=== PATIENT | male | born 1970 | race African-American/Black ===

== ENCOUNTER 2016-08-25 02:41 | Emergency (ER) | payer BC, OTHER ==
[~2016-08-25] VITALS: Ht 172.7 cm; Wt 88.5 kg
--- NOTE | ~2016-08-25 | EKG ---
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 : 1970 Requested By: Shaggy Fry Order Number: [id number] MD: Roque Perales Measurements Intervals [place] Rate: 99 P: 54 MN: 146 QRS: -60 QRSD: 135 T: 41 QT: 364 QTc: 468 Interpretive Statements Sinus rhythm RBBB and LAFB Compared to ECG 04/29/2012 16:19:04 Left anterior fascicular block now present Right bundle-branch block now present Electronically Signed On 08-25-2016 9:00:57 CDT by Roque Perales [email or web address] <ELECTRONICALLY SIGNED> By: Roque Perales MD, [facility] 08/25/16 0900 2 2 Roque Perales MD, [facility] /EPI
[~2016-08-25 02:41] MED LIST: ATRIPLA TABLET1 EACH PO; AUGMENTIN 875875 M1 PO; AVELOX 400 MG400 M1 PO; BACTRIM DS TAB1 EACH PO; CARVEDILOL12.5 MG PO; CLOPIDOGREL PO; COLACE100 MG PO; DOLOPHINE HCL5 MG PO; ENOXAPARIN40 MG/0.4 SUBQ; FLEXERIL PO; HIGH CHOLESTEROL MED; HUMULIN 70100 UNIT/2 SQ; HUMULIN 70100 UNIT/2 SUBQ; HYDROCODON-ACE1 EACH PO; IBUPROFEN 200200 M1 PO; IBUPROFEN 600600 M1 PO; IBUPROFEN 800800 M1 PO; IBUPROFEN 800800 MG PO; INSULIN PEN; LISINOPRIL10 MG PO; METHADONE HCL5 MG PO; MOBIC15 MG PO; NEURONTIN 300300 M1 PO; NICOTINE TRANSD21 M1 TRANSDERM; NORCO 5-325 TA1 EACH PO; NOVOLIN 70100 UNIT/1 SUBQ; NOVOLOG100 UNIT/1; OXYCONTIN CR 2020 MG PO; PERCOCET 10-321 EACH; TEGRETOL XR100 MG PO; UNKNOWN PAIN MED; VITAMINC500 PO; ZESTRIL10 MG PO; ZINC SULFATE 2220 M1 PO; ZOCOR5 MG
[2016-08-25 04:25] LABS: ABSOLUTE NEUTROPHILS 5.1 thou/uL (1.4-8.2); BASOPHILS 0.7 % (0.0-2.0); EOSINOPHILS 3.6 % (0.0-3.0); HEMATOCRIT 42.9 % (42.0-52.0); HEMOGLOBIN 14.8 gm/dL (14.0-18.0); LYMPHOCYTES 22.1 % (24.0-44.0); MCH 31.8 pg (26.0-34.0); MCHC 34.5 g/dL (28.0-37.0); MONOCYTES 7.2 % (1.0-8.0); PLATELET COUNT 273 thou/uL (150-400); POLYS 66.4 % (36.0-66.0); RBC 4.66 mil/uL (4.50-6.00); RDW 12.8 % (10.5-14.5); WBC 7.6 thou/uL (4.0-11.0)
[2016-08-25 04:30] LABS: MANUAL DIFF NO
[2016-08-25 04:33] LABS: CALCIUM 8.6 mg/dL (8.5-10.1); CREATININE 1.3 mg/dL (0.7-1.3); POTASSIUM 4.1 mmol/L (3.5-5.1)
[2016-08-25 04:39] LABS: ALBUMIN 2.7 g/dL (3.4-5.0); APTT 23.4 Seconds (24.5-32.8); PROTIME 9.6 Seconds (9.3-11.4); TOTAL BILIRUBIN 0.3 mg/dL (<0.1-1.0); TOTAL PROTEIN 7.5 g/dL (6.4-8.2)
[2016-08-25] MEDS ORDERED: NORCO 5-325 TA1 EACH PO (05:51)
[2016-08-25] MEDS ORDERED: NAPROSYN500 MG PO (05:51)
== END 2016-08-25 06:37 | disposition home or self-care (01) ==
LOC: ER 02:41
PROVIDERS: Emergency Medicine
DX: M79.621 Pain in right upper arm (principal); E11.9 Type 2 diabetes mellitus without complications; F17.210 Nicotine dependence, cigarettes, uncomplicated; F10.99 Alcohol use, unspecified with unspecified alcohol-induced disorder; Z21 Asymptomatic human immunodeficiency virus [HIV] infection status; Z79.4 Long term (current) use of insulin

== ENCOUNTER 2017-05-11 19:53 | Emergency (ER) | payer BC, OTHER ==
[~2017-05-11] VITALS: Ht 172.7 cm; Wt 81.7 kg
[~2017-05-11 19:53] MED LIST changes: +NAPROSYN500 MG PO
[2017-05-11 22:00] LABS: ABSOLUTE NEUTROPHILS 2.9 thou/uL (1.4-8.2); BASOPHILS 1.2 % (0.0-2.0); EOSINOPHILS 3.1 % (0.0-3.0); HEMATOCRIT 45.4 % (42.0-52.0); HEMOGLOBIN 15.6 gm/dL (14.0-18.0); LYMPHOCYTES 34.4 % (24.0-44.0); MCH 31.8 pg (26.0-34.0); MCHC 34.4 g/dL (28.0-37.0); MCV 92.4 fL (80.0-100.0); MONOCYTES 6.3 % (1.0-8.0); PLATELET COUNT 261 thou/uL (150-400); RBC 4.92 mil/uL (4.50-6.00); RDW 13.2 % (10.5-14.5); WBC 5.2 thou/uL (4.0-11.0)
[2017-05-11 22:07] LABS: CALCIUM 8.9 mg/dL (8.5-10.1); CREATININE 1.4 mg/dL (0.7-1.3); POTASSIUM 3.4 mmol/L (3.5-5.1)
[2017-05-11 22:10] LABS: URIC ACID* 3.9 mg/dL (2.6-7.2)
[2017-05-11] MEDS ORDERED: HUMULIN 70100 UNIT/2 SUBQ (22:33)
[2017-05-11] MEDS ORDERED: ULTRAM 50MG TAB50 MG PO (22:33)
[2017-05-11 22:40] VITALS: BP 140/94
== END 2017-05-11 22:41 | disposition home or self-care (01) ==
LOC: ER 19:53
PROVIDERS: Physician Assistant
DX: E11.40 Type 2 diabetes mellitus with diabetic neuropathy, unspecified (principal); F17.210 Nicotine dependence, cigarettes, uncomplicated

== ENCOUNTER 2017-08-17 14:35 | Inpatient (IN) | payer BC, OTHER ==
[~2017-08-17] VITALS: Ht 172.7 cm; Wt 86.5 kg
[~2017-08-17 14:35] MED LIST changes: +ULTRAM 50MG TAB50 MG PO
[2017-08-17 17:56] VITALS: BP 173/112
[2017-08-17 19:23] VITALS: BP 164/104
[2017-08-17 20:03] LABS: ABSOLUTE NEUTROPHILS 2.8 thou/uL (1.4-8.2); BASOPHILS 0.9 % (0.0-2.0); EOSINOPHILS 4.6 % (0.0-3.0); HEMATOCRIT 44.4 % (42.0-52.0); HEMOGLOBIN 15.5 gm/dL (14.0-18.0); LYMPHOCYTES 30.8 % (24.0-44.0); MCH 32.3 pg (26.0-34.0); MCHC 34.9 g/dL (28.0-37.0); MCV 92.6 fL (80.0-100.0); MONOCYTES 7.1 % (1.0-8.0); PLATELET COUNT 323 thou/uL (150-400); POLYS 56.6 % (36.0-66.0); RDW 13.2 % (10.5-14.5); WBC 4.9 thou/uL (4.0-11.0)
[2017-08-17 20:13] LABS: CALCIUM 8.9 mg/dL (8.5-10.1); CREATININE 1.1 mg/dL (0.7-1.3); POTASSIUM 3.1 mmol/L (3.5-5.1)
[2017-08-18] VITALS (7 sets, daily range): BP systolic 145–163; BP diastolic 11–109
[2017-08-18 06:14] LABS: GLYCOHEMOGLOBIN (HGB A1C) 10.1 % (4.8-5.6)
[2017-08-19 04:22] VITALS: BP 147/83
[2017-08-19 06:25] LABS: ABSOLUTE NEUTROPHILS 3.2 thou/uL (1.4-8.2); BASOPHILS 0.7 % (0.0-2.0); EOSINOPHILS 2.3 % (0.0-3.0); HEMATOCRIT 43.2 % (42.0-52.0); HEMOGLOBIN 14.8 gm/dL (14.0-18.0); LYMPHOCYTES 22.1 % (24.0-44.0); MCHC 34.2 g/dL (28.0-37.0); MCV 93.5 fL (80.0-100.0); MONOCYTES 7.8 % (1.0-8.0); PLATELET COUNT 299 thou/uL (150-400); POLYS 67.1 % (36.0-66.0); RBC 4.62 mil/uL (4.50-6.00); RDW 13.4 % (10.5-14.5); WBC 4.8 thou/uL (4.0-11.0)
[2017-08-19 06:34] LABS: CALCIUM 8.8 mg/dL (8.5-10.1); POTASSIUM 3.6 mmol/L (3.5-5.1)
[2017-08-19 06:38] LABS: CHOLESTEROL 215 mg/dL (<200); HDL CHOLESTEROL 50 mg/dL (>40); LDL CHOLESTEROL 146 mg/dL (<100); TC:HDL 4.3 Ratio (Not establshd); TRIGLYCERIDE 98 mg/dL (<150); VLDL 20 mg/dL (<40)
[2017-08-19 07:48] VITALS: BP 152/89
[2017-08-19 16:53] VITALS: BP 156/95
[2017-08-19 20:00] VITALS: BP 153/99
[2017-08-20 04:00] VITALS: BP 144/83
[2017-08-20 08:00] VITALS: BP 160/113
[2017-08-20] MEDS ORDERED: ATORVASTATIN CA40 MG PO (13:24)
[2017-08-20] MEDS ORDERED: COZAAR 25 MG TA25 M1 PO (13:24)
[2017-08-20] MEDS ORDERED: ATRIPLA TABLET1 EACH PO (13:24)
[2017-08-20] MEDS ORDERED: CLOPIDOGREL75 MG PO (13:24)
[2017-08-20] MEDS ORDERED: TRI-BUFFERED A325 M1 PO (13:24)
[2017-08-20] MEDS ORDERED: SYNTHROID50 MCG PO (13:24)
[2017-08-20] MEDS ORDERED: ACETAMINOPHEN325 M1 PO (13:24)
[2017-08-20] MEDS ORDERED: AMLODIPINE BESYL5 M1 PO (13:24)
[2017-08-20] MEDS ORDERED: HUMULIN 70100 UNIT/3 SUBQ ×2 (13:24)
[2017-08-20] MEDS ORDERED: SENNA8.6 MG PO (13:33)
[2017-08-20] MEDS ORDERED: AMOX TR-K CLV1 EACH PO (13:33)
[2017-08-20] MEDS ORDERED: COLACE100 MG PO (13:33)
[2017-08-20] MEDS ORDERED: OXYCODONE HCL 55 MG PO (13:45)
[2017-08-20 14:11] VITALS: BP 160/113
== END 2017-08-20 14:40 | disposition home or self-care (01) | DRG 300 ==
LOC: 4W 14:35 → ENTRNSPT 08-20 14:28 → EDTRNSPTSTS 08-20 14:32 → 4W 08-20 14:40
PROVIDERS: Family Medicine; Hospitalist; Nurse Practitioner Gerontology
DX: E11.52 Type 2 diabetes mellitus with diabetic peripheral angiopathy with gangrene (principal); E11.40 Type 2 diabetes mellitus with diabetic neuropathy, unspecified; F17.210 Nicotine dependence, cigarettes, uncomplicated; Z21 Asymptomatic human immunodeficiency virus [HIV] infection status; E03.9 Hypothyroidism, unspecified; I10 Essential (primary) hypertension; E78.5 Hyperlipidemia, unspecified; E11.65 Type 2 diabetes mellitus with hyperglycemia; K59.00 Constipation, unspecified; L03.032 Cellulitis of left toe; Z79.899 Other long term (current) drug therapy; Z71.6 Tobacco abuse counseling; Z72.89 Other problems related to lifestyle; Z71.41 Alcohol abuse counseling and surveillance of alcoholic; Z91.14 Patient's other noncompliance with medication regimen
CPT/HCPCS: 10047

== ENCOUNTER 2018-06-28 09:08 | Inpatient (IN) | payer BC, OTHER ==
[2018-06-28] VITALS (28 sets, daily range): BP systolic 91–129; BP diastolic 58–92
[~2018-06-28] VITALS: Ht 172.7 cm; Wt 92.6 kg
[~2018-06-28 09:08] MED LIST changes: +ACETAMINOPHEN325 M1 PO; +AMLODIPINE BESYL5 M1 PO; +AMOX TR-K CLV1 EACH PO; +ATORVASTATIN CA40 MG PO; +CLOPIDOGREL75 MG PO; +COZAAR 25 MG TA25 M1 PO; +HUMULIN 70100 UNIT/3 SUBQ; +OXYCODONE HCL 55 MG PO; +SENNA8.6 MG PO; +SYNTHROID50 MCG PO; +TRI-BUFFERED A325 M1 PO
[2018-06-28 09:34] LABS: EOSINOPHILS 1.2 % (0.0-3.0); HEMATOCRIT 51.8 % (42.0-52.0); HEMOGLOBIN 17.7 gm/dL (14.0-18.0); LYMPHOCYTES 35.1 % (24.0-44.0); MCH 33.1 pg (26.0-34.0); MCHC 34.2 g/dL (28.0-37.0); MCV 96.7 fL (80.0-100.0); MONOCYTES 9.3 % (1.0-8.0); PLATELET COUNT 411 thou/uL (150-400); POLYS 53.4 % (36.0-66.0); RBC 5.35 mil/uL (4.50-6.00); RDW 13.4 % (10.5-14.5); WBC 7.5 thou/uL (4.0-11.0)
[2018-06-28 09:40] LABS: ANION GAP 13 mmol/L (7-16); BUN 10 mg/dL (7-18); CALCIUM 9.5 mg/dL (8.5-10.1); CHLORIDE 102 mmol/L (98-107); CO2 27 mmol/L (21-32); CREATININE 1.1 mg/dL (0.7-1.3); GLUCOSE 136 mg/dL (74-106); POTASSIUM 3.2 mmol/L (3.5-5.1); SODIUM 142 mmol/L (136-145)
[2018-06-28 09:49] LABS: ALBUMIN 3.2 g/dL (3.4-5.0); DIRECT BILIRUBIN < 0.1 mg/dL (<0.1-0.3); SGOT 53 U/L (15-37); SGPT 25 U/L (30-65); TOTAL BILIRUBIN 0.3 mg/dL (<0.1-1.0); TOTAL PROTEIN 8.2 g/dL (6.4-8.2)
[2018-06-28 09:52] LABS: APTT 24.5 Seconds (24.5-32.8); PROTIME 9.9 Seconds (9.3-11.4)
[2018-06-28 09:53] LABS: TROPONIN-I 5.88 ng/mL (<0.06)
[2018-06-28 14:15] LABS: CALCIUM 8.7 mg/dL (8.5-10.1); MAGNESIUM 1.5 mg/dL (1.8-2.4); POTASSIUM 3.7 mmol/L (3.5-5.1)
--- NOTE | 2018-06-28 16:57 | EKG ---
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 : 1970 Requested By: Ember Juarez Order Number: [id number] MD: Roque Perales Measurements Intervals [place] Rate: 108 P: 58 DC: 147 QRS: -98 QRSD: 136 T: -15 QT: 316 QTc: 424 Interpretive Statements Sinus tachycardia Right bundle branch block Anteroseptal infarct, acute Compared to ECG 08/25/2016 03:13:46 Myocardial infarct finding now present Electronically Signed On 06-28-2018 16:57:18 CDT by Roque Perales [email or web address] ��������������������������������������������� <ELECTRONICALLY SIGNED> ���������������������������������������� By: Roque Perales MD, [facility] ��������������������������������������������� 06/28/18 2715 2 Roque Perales MD, [facility] /EPI
--- NOTE | 2018-06-28 17:01 | EKG ---
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 : 1970 Requested By: Will Collins Order Number: [id number] MD: Roque Perales Measurements Intervals [place] Rate: 108 P: 59 [place]: 146 QRS: -123 QRSD: 130 T: 68 QT: 373 QTc: 500 Interpretive Statements Sinus tachycardia Ventricular premature complex Right bundle branch block Anterior infarct, acute (LAD) Compared to ECG 08/25/2016 03:13:46 Ventricular premature complex(es) now present ST segment elevation less prominent Electronically Signed On 06-28-2018 17:01:06 CDT by Roque Perales [email or web address] ��������������������������������������������� <ELECTRONICALLY SIGNED> ���������������������������������������� By: Roque Perales MD, [facility] ��������������������������������������������� 06/28/18 1701 1443 1443 Roque Perales MD, [facility] /EPI
--- NOTE | 2018-06-28 17:24 | CATHLAB ---
[facility] [address] [place] [address] INVASIVE PROCEDURE REPORT Name: ZARI GASPAR Room #: 246-P [facility] IN ..#: [id number] ������������� Admission: 06/28/18 ������������� Attend Phys: Jah Guzman MD Discharge: ��� ������������� ��� Date of : 74 Date of Service: 06/28/18 1724 �� Report #: [id number] �������� ��������������������������������������������[id number] THIS REPORT FOR: //name// APPROVED REPORT Study performed: 06/28/2018 09:53:11 Patient Details Patient Status: ED Room #: The patient is a 47 year-old male Event Personnel Will Collins Stock Digger, Bharath Hopper RN, Lizbeth Owen RT(R)() Joe Whittington David Monitor Procedures Performed Left Heart Cath w/or w/o Coronaries [id number] [facility] IMANI Revasc AMI Total/Sub Single LAD C9606 AMIREVSING Indication STEMI (>0 to less than or equal to 6 hours), Dyspnea, Chest pain Risk Factors Hypercholesterolemia, Hypertension, Diabetes Tobacco History () Procedure Narrative The Right Groin^ was infiltrated with 1% Lidocaine subcutaneous anesthesia. A PINNACLE 6FR Sheath #[id number] sheath was inserted into the RFA^. Coronary angiography was performed using coronary diagnostic catheters. The right coronary system was accessed and visualized with a JR4 catheter. The left coronary system was accessed and visualized with a JL4 catheter. The left ventricle was accessed and visualized with a PIGTAIL catheter. Left ventricular/Aortic Valve gradient assessed via catheter pullback. Left ventriculogram was performed in 30 degree projection. Closure device was deployed with a 6 Fr MYNXGRIP 6/7F #[id number]. The patient tolerated the procedure well and there were no complications associated with the procedure. There was no hematoma. Intraoperative Conscious Sedation Sedation start time: 9.43 Case end Time: 10.57 Fentanyl [facility] [email or web address] [place] [address] INVASIVE PROCEDURE REPORT Name: ZARI GASPAR Room #: 246-P [facility] IN [facility].#: [id number] ������������� Admission: 06/28/18 ������������� Attend Phys: Jah Guzman MD Discharge: ��� ������������� ��� Date of : 74 Date of Service: 06/28/18 1724 �� Report #: [id number] �������� ��������������������������������������������[id number] Fluoro Time: 15.8 minutes Dose: DAP 73521 cGycm2 3509 mGy Coronary Angiography The patient's coronary anatomy is co- dominant. Diagnostic Cath Left Main This is a large caliber vessel, with no flow-limiting lesions. LAD There is a total occlusion in the proximal segment of the LAD. Circumflex This is a codominant vessel, with no flow-limiting lesions. OM1 This is a moderate size caliber vessel with a high takeoff from the left circumflex artery. This vessel is patent with no flow-limiting lesions. It divides into several branches as it travels down the anterolateral wall. OM2 This is a moderate size caliber vessel with a moderate stenosis at the proximal segment, 40%. Right Coronary There is a moderate stenosis in the proximal segment, 40%. R PDA This is a patent vessel, with no flow-limiting lesions. Left Ventriculography The left ventricle is mildly dilated in size with decreased contractility. The left ventricular ejection fraction is estimated to be 25-30%. There is hypokinesis of the mid to apical anterior and distal inferior wall. Hemodynamics The aortic pressure is 102/76 mmHg with a mean of 89 mmHg. The left ventricular pressure is 107/27 mmHg with a mean of mmHg. The left ventricular end diastolic pressure is 45 mmHg. There was no gradient across the aortic valve upon pullback. Pullback from the left ventricle to the aorta revealed no gradient across the aortic valve. PCI Technique Lesion Percutaneous coronary intervention was performed on the proximal left anterior descending artery segment. The lesion stenosis prior to intervention was 100% with KELL 0 flow. A VISTA 6FR JL4 #[id number] Guide Catheter was used to engage the ostium. A Luge Wire .014 x 182CM #[id number] Interventional Guidewire was used to cross the lesion. [facility] [address] [place] [address] INVASIVE PROCEDURE REPORT Name: CHASITYZARI Room #: 246-P [facility] IN M.R.#: [id number] ������������� Admission: 06/28/18 ������������� Attend Phys: Jah Guzman MD Discharge: ��� ������������� ��� Date of : 74 Date of Service: 06/28/18 1724 �� Report #: [id number] �������� ��������������������������������������������[id number] BALLOON DILATION A Balloon catheter Euphora RX 2.5 x 12 #[id number] was inserted and inflated up to 8.00atm for 16seconds. Additional Inflation: 20.00atm for 16seconds. Additional Inflation: 18.00atm for 20seconds. STENT DEPLOYMENT A drug-eluting stent XIENCE RYNE RX 3.25 X 23 #[id number] was inserted and inflated up to 20.00atm for 16seconds. POST STENT DEPLOYMENT BALLOON DILATION A Balloon catheter TREK NC RX 3.5 X 15 #[id number] was inserted and inflated up to 18.00atm for 20seconds. Additional Inflation: 18.00atm for 7seconds. Additional Inflation: 18.00atm for 14seconds. COMMENTS After the proximal occlusion was wired, there was a no flow in the distal LAD segment, probably from embolization. After the proximal occlusion was stented, this provided adequate blood flow to the proximal and mid segments of the LAD and its branches. There was still a total occlusion within the distal LAD segment. A wire was introduced into this region and angioplasty with a 2.0 mm balloon was performed. Repeat injections did not reveal any improvement. PCI Technique Lesion 2 Percutaneous Coronary Intervention was performed on the distal left anterior descending artery segment. A VISTA 6FR JL4 #[id number] Guide Catheter was used to engage the ostium. A Luge Wire .014 x 182CM #[id number] Interventional Guidewire was used to cross the lesion. Balloon Dilation A Balloon catheter Euphora RX 2.0 x12 #[id number] was inserted and inflated up to 8.00atm for 12seconds. Additional Inflation: 8.00atm for 8seconds. Additional Inflation: 10.00atm for 19seconds. Conclusion 1. Successful insertion of a drug-eluting stent into the total occlusion in the proximal LAD. Total occlusion of distal LAD, possibly from embolization. 2. Codominant left circumflex system. 3. Moderate disease in OM 2 and RCA. 4. Severe LV dysfunction. [facility] [address] [place] [address] INVASIVE PROCEDURE REPORT Name: ZARI GASPAR Room #: 246-P [facility] IN M.R.#: [id number] ������������� Admission: 06/28/18 ������������� Attend Phys: Jah Guzman MD Discharge: ��� ������������� ��� Date of : 74 Date of Service: 06/28/181723 �� Report #: [id number] �������� ��������������������������������������������[id number] 5. Recommend dual antiplatelet therapy and aggressive risk factor management, including tobacco cessation. ��������������������������������������������� <ELECTRONICALLY SIGNED> ���������������������������������������� By: Will Collins MD ��������������������������������������������� 06/28/181723 23 23 Will Collins MD /INF
--- NOTE | 2018-06-28 18:18 | NUR ---
ASSUMED CARE OF PT FROM BLOOD COORDINATOR AT 1230. PT. IS DROWSY, BUT ORIENTED X4. RIGHT GROIN SITE IS INTACT WITH NO HEMATOMA FORMATION. BEDREST MAINTAINED. PT. TOLERATING HEART HEALTHY DIET. VITAL SIGNS AND ASSESSMENTS CHARTED. MAGNESIUM GIVEN PER PHYSICIAN ORDER. POC IS TO GRADUALLY INCREASE MOVEMENT. WILL CONTINUE TO MONITOR
[2018-06-29] VITALS (12 sets, daily range): BP systolic 86–126; BP diastolic 36–86
[2018-06-29 05:59] LABS: HEMATOCRIT 47.4 % (42.0-52.0); HEMOGLOBIN 15.9 gm/dL (14.0-18.0); MCH 32.7 pg (26.0-34.0); MCHC 33.6 g/dL (28.0-37.0); MCV 97.4 fL (80.0-100.0); RBC 4.87 mil/uL (4.50-6.00); RDW 13.3 % (10.5-14.5); WBC 9.1 thou/uL (4.0-11.0)
[2018-06-29 06:19] LABS: ALBUMIN 2.5 g/dL (3.4-5.0); CALCIUM 8.7 mg/dL (8.5-10.1); POTASSIUM 3.9 mmol/L (3.5-5.1); TOTAL BILIRUBIN 0.4 mg/dL (<0.1-1.0); TOTAL PROTEIN 6.2 g/dL (6.4-8.2)
--- NOTE | 2018-06-29 06:22 | NUR ---
Pt slept well through the night with stable VS and no c/o chest pain. PRN tramadols given for c/o right groin being "sore" with desired effect achieved. Voiding per urinal without difficulty. Am lab results pending, continue with POC.
[2018-06-29 06:52] LABS: TROPONIN-I 107.73 ng/mL (<0.06)
--- NOTE | 2018-06-29 08:54 | EKG ---
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 : 1970 Requested By: Will Collins Order Number: [id number] MD: Isaac Napoles Measurements Intervals [place] Rate: 113 P: 45 [place]: 151 QRS: -122 QRSD: 129 T: 76 QT: 346 QTc: 475 Interpretive Statements Sinus tachycardia Ventricular premature complex Right bundle branch block ST changes improved Compared to ECG 06/28/2018 14:43:52 Electronically Signed On 06-29-2018 8:54:16 CDT by Isaac Napoles [email or web address] ��������������������������������������������� <ELECTRONICALLY SIGNED> ���������������������������������������� By: Isaac Napoles MD ��������������������������������������������� 06/29/18 0854 0752 0752 Isaac Napoles MD /LINO
--- NOTE | 2018-06-29 10:47 | 2DMMODE ---
[facility] [address] [place] [address] 2 D/M-MODE ECHOCARDIOGRAM Name: ZARI GASPAR Room #: 246-P ADM IN M.R.#: [id number] ������������� Admission: 06/28/18 ������������� Attend Phys: Jah Guzman MD Discharge: ��� ������������� ��� Date of : 74 Date of Service: 06/29/18 1047 �� Report #: [id number] �������� ��������������������������������������������[id number] THIS REPORT FOR: //name// APPROVED REPORT Study performed: 06/29/2018 08:28:18 EXAM: Comprehensive 2D, Doppler, and color-flow Echocardiogram Patient Location: ICU Room #: 246 Status: routine BSA: 2.04 HR: 117 bpm BP: 111/77 mmHg Rhythm: Tachycardia Other Information Study Quality: Good Indications Diabetes CAD Cardiomyopathy Chest Pain Hypertension/HDD Echo Enhancing Agent Indication: Image Apical thrombus Agent(s) / Amount(s) Used: Optison 4 cc 2D Dimensions RVDd: 32.64 mm IVSd: 9.03 (7-11mm) LVOT Diam: 22.56 (18-24mm) LVDd: 60.58 mm PWd: 10.01 (7-11mm) Ascending Ao: 34.26 (22-36mm) LVDs: 55.49 (25-40mm) Aortic Root: 28.19 mm IVC: 16.00 mm Volumes Left Atrial Volume (Systole) Single Plane 4CH: 38.34 mL Single Plane 2CH: 61.24 mL LA ESV Index: 26.00 mL/m2 Aortic Valve AoV Peak Yoan.: 0.92 m/s [facility] [address] [place] [address] 2 D/M-MODE ECHOCARDIOGRAM Name: CHASITYZARI Room #: 246-P [facility]#: [id number] ������������� Admission: 06/28/18 ������������� Attend Phys: Jah Guzman MD Discharge: ��� ������������� ��� Date of : 74 Date of Service: 06/29/18 1047 �� Report #: [id number] �������� ��������������������������������������������[id number] AO Peak Gr.: 3.38 mmHg LVOT Max P.63 mmHg LVOT Max V: 0.81 m/s CRISTIAN Vmax: 3.52 cm2 Mitral Valve E/A Ratio: 4.2 MV Decel. Time: 126.04 ms MV E Max Yoan.: 0.92 m/s MV A Yoan.: 0.22 m/s MV PHT: 36.55 ms IVRT: 55.36 ms Pulmonary Valve PV Peak Yoan.: 0.76 m/s PV Peak Gr.: 2.34 mmHg Tricuspid Valve TR Peak Yoan.: 4.01 m/s TR Peak Gr.: 64.38 mmHg PA Pressure: 69.00 mmHg Left Ventricle Left ventricle is dilated. There is global severe hypokinesis of the left ventricle. There is normal left ventricular wall thickness. Left ventricular ejection fraction is severely decreased. Septal, anterolateral, and apical akinesis Large apical thrombus LVEF 25%. This study is not technically sufficient to allow evaluation of the LV diastolic function. Right Ventricle The right ventricle is normal size. The right ventricular systolic function is normal. Atria The left atrium size is normal. The right atrium size is normal. Aortic Valve The aortic valve is normal in structure. No aortic regurgitation is present. There is no aortic valvular stenosis. Mitral Valve The mitral valve is normal in structure. Mild mitral regurgitation. No evidence of mitral valve stenosis. Tricuspid Valve The tricuspid valve is normal in structure. There is mild tricuspid [facility] [address] [place] [address] 2 D/M-MODE ECHOCARDIOGRAM Name: ZARI GASPAR Room #: 246-P [facility] IN M.R.#: [id number] ������������� Admission: 06/28/18 ������������� Attend Phys: Jah Guzman MD Discharge: ��� ������������� ��� Date of : 74 Date of Service: 06/29/18 1047 �� Report #: [id number] �������� ��������������������������������������������[id number] regurgitation. Estimated PAP 65-70 mmHg There is moderate-severe pulmonary hypertension. Pulmonic Valve The pulmonary valve is normal in structure. Trace pulmonic regurgitation. Great Vessels The aortic root is normal in size. IVC is normal in size and collapses >50% with inspiration. Pericardium There is no pericardial effusion. Critical Notification Critical Value: Yes Physician Notified Date: 06/29/2018 <Conclusion> Left ventricular ejection fraction is severely decreased. Septal, anterolateral, and apical akinesis Large apical thrombus LVEF 25%. The aortic valve is normal in structure. No aortic regurgitation or stenosis The mitral valve is normal in structure. Mild mitral regurgitation. There is mild tricuspid regurgitation. Estimated pulmonar artery pressure of 65-70 mmHg There is no pericardial effusion. ��������������������������������������������� <ELECTRONICALLY SIGNED> ���������������������������������������� By: Roque Perales MD, FACC ��������������������������������������������� 06/29/18 1047 1047 1047 Roque Perales MD, FACC /INF
[2018-06-29 11:31] LABS: PROTIME 10.4 Seconds (9.3-11.4)
--- NOTE | 2018-06-29 13:14 | NUR ---
Assumed care of patient at 0700. Patient resting comfortably in bed. Denies chest pain, shortness of breath, or nausea at this time. Does c/o headache in the morning but resolved after eating breakfast. Right groin site remains soft, no drainage or hematoma noted. Patient up ad eric, steady gait. Echo done at bedside this morning. Ok'd to transfer to CCU. Continue to monitor.
--- NOTE | 2018-06-29 15:32 | NUR ---
PT TRANSFERED FROM THE ICU. ORINETED TO ROOM AND BEDSPACE - ASSESSMENT CHARTED - NO CO'S OF PAIN OR NAUSEA. UP AD TRES IN ROOM. GROIN SITE STABLE. NO CO'S AT THE PRESENT TIME. WILL CONT TO MONITOR.
--- NOTE | 2018-06-29 17:29 | NUR ---
Chart reviewed and case discussed with the care team. Bedside visit done with pt and his this afternoon to assess for dc planning needs. 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 He has health ins in place for f/u care and meds. He denies any dc concerns at this time. Pt transfered out of ICU today. Possible dc home tomorrow. Good family support. No cm interventions indicated at this time. Will remain avialable should needs arise.
[2018-06-30 04:21] LABS: PROTIME 10.4 Seconds (9.3-11.4)
[2018-06-30 04:22] VITALS: BP 120/79
[2018-06-30 04:32] LABS: CALCIUM 8.6 mg/dL (8.5-10.1); CREATININE 1.1 mg/dL (0.7-1.3); POTASSIUM 3.2 mmol/L (3.5-5.1)
[2018-06-30 04:55] LABS: TROPONIN-I 59.16 ng/mL (<0.06)
--- NOTE | 2018-06-30 07:29 | NUR ---
ASSESSMENTS CHARTED. PATIENT C/O NEUROPATHY IN LEFT FOOT 09/05 RECEIVED TRAMADOL AND TYLENOL CHARTED. CHANGED TO AD TRES STATUS. POTASSIUM WAS LOW THIS MORNING RECEIVED ONETIME DOSE. PLAN OF CARE IS TO GO HOME TODAY.
[2018-06-30 08:57] VITALS: BP 112/75
[2018-06-30 12:36] VITALS: BP 111/80
[2018-06-30 16:00] VITALS: BP 78/60
--- NOTE | 2018-06-30 16:40 | NUR ---
ASSESSMENT CHARTED - PORHSA DIET AND FLUIDS. NO CO'S OF NAUSEA. PT WITH CO'S OF DIABETIC NEUROPATHY PAIN IN HIS L FOOT - STATES THIS IS CHRONIC FROM TIME TO TIME ESPECIALLY WHEN HE IS NOT ACTIVE. ACCUCHECKS CHARTED COVERED PER MAY. UP AD TRES IN ROOM - PT REMAINS TACHYCARDIC - NEW MED STARTED TODAY AND COREG INCREASED. NO CO'S AT THE PRESENT TIME. APPEARS TO BE RESTING COMFORTABLY.
[2018-06-30 19:51] VITALS: BP 108/83
[2018-07-01 04:28] VITALS: BP 122/90
[2018-07-01 05:16] LABS: PROTIME 10.3 Seconds (9.3-11.4)
[2018-07-01 05:29] LABS: CALCIUM 8.6 mg/dL (8.5-10.1); CREATININE 1.1 mg/dL (0.7-1.3); POTASSIUM 3.2 mmol/L (3.5-5.1)
[2018-07-01 05:50] LABS: TROPONIN-I 44.45 ng/mL (<0.06)
--- NOTE | 2018-07-01 06:17 | NUR ---
ASSUMED PT CARE AT 1900 WITH BEDSIDE REPORT TAKEN, PT IS ALERT AND ORIENTED WITH NO SIGN OF DISTRESS NOTED. PT IS STABLE DENIES ANY NEEDS AT THIS TIME. SCHEDULED MEDS ADMINISTERED TO PT. PT TOLERATED PO INTAKE, NO FURTHER NEEDS AT THIS TIME.
[2018-07-01 09:16] VITALS: BP 118/86
[2018-07-01 13:08] VITALS: BP 127/91
[2018-07-01 15:36] LABS: MAGNESIUM 1.7 mg/dL (1.8-2.4); POTASSIUM 3.9 mmol/L (3.5-5.1)
[2018-07-01 16:00] VITALS: BP 125/86
--- NOTE | 2018-07-01 16:45 | NUR ---
ASSESSMENT CHARTED - MEDS PER MAY - GIVE K+ 40 MEQ FOR K+ OF 3.2. LAB DRAWN UP TO 3.9 - MAG 1.7 REPLACED AND THEN LAB IN THE AM. PORSHA DIET AND FLUIDS. NO CO'S OF NAUSEA . STARTED ON LYRICA FOR CO'S OF NEUROPATHY PAIN IN L FOOT WITH GOOD EFFECT. UP AD TRES IN ROOM. PT HEART RATE REMAINS IN THE 110'S. NO CO'S AT THE PRESENT TIME.
[2018-07-01 20:57] VITALS: BP 111/78
[2018-07-02 04:56] LABS: PROTIME 10.7 Seconds (9.3-11.4)
[2018-07-02 05:05] LABS: CALCIUM 8.5 mg/dL (8.5-10.1); CREATININE 1.2 mg/dL (0.7-1.3); MAGNESIUM 1.8 mg/dL (1.8-2.4); POTASSIUM 3.7 mmol/L (3.5-5.1)
[2018-07-02 05:16] LABS: TROPONIN-I 30.4 ng/mL (<0.06)
[2018-07-02 05:23] VITALS: BP 115/77
--- NOTE | 2018-07-02 05:33 | NUR ---
ASSUMED PT CARE AT 1900. VSS. PT A&0X4. ASSESMENTS CHARTED. PT COMPLAINED OF FOOT PAIN, STATED THAT THE NEW COURSE OF LYRICA STARTED HAS BEEN REALLY EFFECTIVE IN PAIN MANAGEMENT. PT REMAINS TACHY AT REST IN THE 110s AND 120s WITH ACTIVITY' REPORTS NO SYSTOMS, SAYS HE FEELS FINE. HE TOOK A COUPLE LAPS AROUND THE UNIT. HE IS STABLE. NO COMPLAINTS OF DISRESS, BLOOD SUGAR BEING MANAGED PER SSI. PT STATED HE IS BORED AND TIRED OF THE HOSPITAL AND WOULD LIKE TO GO HOME SOON. WILL CONTINUE TO [facility] PER POC.
[2018-07-02 07:40] VITALS: BP 113/75
[2018-07-02 11:40] VITALS: BP 120/81
--- NOTE | 2018-07-02 15:51 | NUR ---
ASSUMED CARE OF PT AT 0700. ASSESSMENT CHARTED. A&O, X4. C/O LEFT TOE PAIN AND TINGLING, MEDS GIVEN ORDERED. SINUS TACHYCARDIA, 110'S. ROOM AIR. DENIES SOA OR CHEST PAIN. NO EDEMA. SKIN INTACT. AT BEDSIDE THROUGHOUT DAY. PT IN STABLE CONDITION. WILL CONTINUE TO MONITOR UNTIL EOS.
[2018-07-02 16:58] VITALS: BP 126/88
[2018-07-02 19:28] VITALS: BP 125/87
--- NOTE | 2018-07-03 00:41 | NUR ---
ASSUMED PT CARE AT 1900. VSS EXCEPT HR WHICH IS STILL TACHY IN THE 110S, PT A&0X4. AD TRES, STATED THAT WHEN LYRICA IS GIVEN WITH TORADOL, HIS PAIN IS USUALLY COMPLETELY RELIEVED. PT VANDA TRANSFERED TO ANOTHER NUSE AT 0030
[2018-07-03 04:09] VITALS: BP 123/81
--- NOTE | 2018-07-03 05:45 | NUR ---
ASSUMED PT CARE AT 2300 WITH NO SIGN OF DISTRESS NOTED IN PT. PT IS SLEEPING, REPORT TAKEN. NO SIGN OF DISTRESS NOTED. DENIES ANY NEEDS AT THIS TIME.
[2018-07-03 08:40] VITALS: BP 127/90
[2018-07-03 08:49] LABS: INR 1.1; PROTIME 11.2 Seconds (9.3-11.4)
[2018-07-03 11:16] LABS: HEMATOCRIT 39.9 % (42.0-52.0); HEMOGLOBIN 13.6 gm/dL (14.0-18.0); MCH 33.1 pg (26.0-34.0); MCHC 34.1 g/dL (28.0-37.0); MCV 97.1 fL (80.0-100.0); RBC 4.11 mil/uL (4.50-6.00); RDW 12.6 % (10.5-14.5); WBC 5.9 thou/uL (4.0-11.0)
[2018-07-03 11:24] LABS: CALCIUM 8.5 mg/dL (8.5-10.1); CREATININE 1.2 mg/dL (0.7-1.3); MAGNESIUM 1.6 mg/dL (1.8-2.4); POTASSIUM 4.3 mmol/L (3.5-5.1)
[2018-07-03 12:35] VITALS: BP 123/90
--- NOTE | 2018-07-03 13:53 | EKG ---
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1970 Requested By: Isaac Napoles Order Number: [id number] MD: Roque Perales Measurements Intervals [place] Rate: 106 P: 64 LA: 160 QRS: -110 QRSD: 132 T: 88 QT: 360 QTc: 479 Interpretive Statements Sinus tachycardia Right bundle branch block Anteroseptal infarct, age indeterminate Compared to ECG 06/29/2018 07:52:29 Ventricular premature complex(es) no longer present Electronically Signed On 07-03-2018 13:52:55 CDT by Roque Perales [email or web address] ��������������������������������������������� <ELECTRONICALLY SIGNED> ���������������������������������������� By: Roque Perales MD, [facility] ��������������������������������������������� 07/03/18 1352 1031 1031 Roque Perales MD, [facility] /EPI
[2018-07-03 16:19] VITALS: BP 113/83
--- NOTE | 2018-07-03 18:32 | NUR ---
ASSUMED CARE AT 0710. O X 4 PATIENTS CONCERN IS PAIN CONTROL. PREFERS ULTRAM AND LYRICA TOGETHER WHEN POSSIBLE. UP AD TRES, BUT LEFT UNIT FOR APPROXIMATELY 1 HOUR. INSTRUCTED TO STAY ON THIS FLOOR BECAUSE WE ARE MONITORING HIS HEART RATE. STATED HE UNDERSTOOD. COREG DOSAGE CHANGED TO 12.5 BID AND LYRICA CHANGED TO 100 MG BID. MAG 1.6, RECIEVED 400 MG PO.
[2018-07-03 19:49] VITALS: BP 122/87
[2018-07-04 03:19] LABS: HEMATOCRIT 43.2 % (42.0-52.0); HEMOGLOBIN 14.8 gm/dL (14.0-18.0); MCH 33.1 pg (26.0-34.0); MCHC 34.2 g/dL (28.0-37.0); MCV 96.7 fL (80.0-100.0); RBC 4.46 mil/uL (4.50-6.00); RDW 12.6 % (10.5-14.5); WBC 6.9 thou/uL (4.0-11.0)
[2018-07-04 03:30] LABS: CALCIUM 9.1 mg/dL (8.5-10.1); CREATININE 1.1 mg/dL (0.7-1.3); MAGNESIUM 1.6 mg/dL (1.8-2.4)
[2018-07-04 03:31] LABS: INR 1.1; PROTIME 11.5 Seconds (9.3-11.4)
[2018-07-04 05:47] VITALS: BP 121/81
--- NOTE | 2018-07-04 07:32 | NUR ---
ASSUMED PT CARE AT 1900 WITH NO SIGN OF DISTRESS NOTED, PT IS ALERT AND ORIENTED, ASSESSMENT DONE AND CHARTED. VITAL SIGNS STABLE EXECEPT FOR ELEVATED HEART RATE. PHYSICIAN AWARE. SCHEDULED MEDS ADMINSISTERED TO PT. PT IS STABLE, DENIES ANY FUTHER NEEDS AT THIS TIME.
[2018-07-04 08:30] VITALS: BP 128/92
[2018-07-04 12:40] VITALS: BP 113/80
[2018-07-04 14:53] VITALS: BP 138/91
--- NOTE | 2018-07-04 17:25 | NUR ---
PT CARE ASSUMED APPROX 0700. PT ALERT AND ORIENTED X4. DENIES PAIN AND SOA. BS ELEVATED THIS SHIFT. SSI USED TO MANAGE BS. HR ELEVATED MOST OF SHIFT IN LOW 100S. ELEVATED TO 120S WITH ACTIVITY. VS OTHERWISE STABLE. BP MED ADDED THIS SHIFT. POC OTHERWISE UNCHANGED. NO DISTRESS NOTED THIS SHIFT.
[2018-07-04 20:45] VITALS: BP 107/77
[2018-07-05 00:55] VITALS: BP 119/81
[2018-07-05 04:50] LABS: HEMATOCRIT 41.4 % (42.0-52.0); HEMOGLOBIN 13.9 gm/dL (14.0-18.0); MCH 33.3 pg (26.0-34.0); MCHC 33.7 g/dL (28.0-37.0); RBC 4.18 mil/uL (4.50-6.00); RDW 12.7 % (10.5-14.5); WBC 5.9 thou/uL (4.0-11.0)
[2018-07-05 04:55] VITALS: BP 138/84
[2018-07-05 05:01] LABS: INR 1.3; PROTIME 13.7 Seconds (9.3-11.4)
[2018-07-05 05:05] LABS: CALCIUM 8.6 mg/dL (8.5-10.1); CREATININE 1.4 mg/dL (0.7-1.3); MAGNESIUM 1.7 mg/dL (1.8-2.4); POTASSIUM 3.9 mmol/L (3.5-5.1)
--- NOTE | 2018-07-05 06:48 | NUR ---
PATIENTS CARES WERE ASSUMED AT SHIFT CHANGE. PATIENT WAS ASSESSED AND MEDS WERE PASSED. HOURLY ROUNDING WAS DONE PATIENT DID APPER TO BE SLEEPING. AT APPROX 055 PATIENT DID AWAKE IN ALOT OF PAIN. GAVE 0900 LYRICA DOSE TO HELP WITH PAIN. THE BED IS IN A LOW AND LOCKED POSITION. BED ALARM IS ON.
[2018-07-05 11:52] VITALS: BP 116/78
--- NOTE | 2018-07-05 13:28 | NUR ---
Nutrition: pt admitted with STEMI and seen for LOS. Chart reviewed. Eating well on carb controlled, heart healthy diet. Voiced unhappy with diet order. Able to use alternative menu. No recent weight change. Pt refused offer of dietary education and states he is leaving today. Low nutrition risk.
[2018-07-05] MEDS ORDERED: ENOXAPARIN100 MG/11 SUBQ (14:00)
[2018-07-05] MEDS ORDERED: COUMADIN 5 MG TA5 M1 PO (14:02)
[2018-07-05] MEDS ORDERED: CORLANOR5 MG PO (14:03)
[2018-07-05] MEDS ORDERED: LANOXIN 0.250.25 M1 PO (14:03)
[2018-07-05] MEDS ORDERED: CARVEDILOL12.5 MG PO (14:04)
[2018-07-05] MEDS ORDERED: ASPIR 8181 MG PO (14:06)
[2018-07-05] MEDS ORDERED: LYRICA 50 MG50 MG PO (14:07)
[2018-07-05 15:37] VITALS: BP 116/78
[2018-07-05 16:03] VITALS: BP 116/78
--- NOTE | 2018-07-05 16:32 | NUR ---
PATIENT DOING WELL. DENIES CHEST PAIN. READY FOR DISCHARGE. DISCHARGE INSTRUCTIONS GIVEN. GAVE 1700 DOSE OF WARFARIN. PRESCRIPTIONS GIVEN. PATIENT HAD PRIOR TEACHING REGARDING LOVENOX INJECTIONS AND PRECAUTIONS WITH WARFARIN. WILL FOLLOW UP TOMORROW AND HAVE INR DRAWN. DISMISSED IN STABLE CONDITION.
== END 2018-07-05 17:00 | disposition home or self-care (01) | DRG 247 ==
LOC: ER 09:08 → EROBS 09:46 → 2N 09:46 → ICU 12:36 → 2N 06-29 14:15 → ENTRNSPT 07-05 16:22 → 2N 07-05 17:00
PROVIDERS: Emergency Medicine; Internal Medicine; Internal Medicine Cardiovascular Disease; Nurse Practitioner; Nurse Practitioner Gerontology; ADMIT Hospitalist
DX: I21.3 ST elevation (STEMI) myocardial infarction of unspecified site (principal); I24.0 Acute coronary thrombosis not resulting in myocardial infarction; F12.90 Cannabis use, unspecified, uncomplicated; E78.5 Hyperlipidemia, unspecified; F17.210 Nicotine dependence, cigarettes, uncomplicated; I25.5 Ischemic cardiomyopathy; R00.0 Tachycardia, unspecified; E11.40 Type 2 diabetes mellitus with diabetic neuropathy, unspecified; I10 Essential (primary) hypertension; E03.9 Hypothyroidism, unspecified; E11.51 Type 2 diabetes mellitus with diabetic peripheral angiopathy without gangrene; Z86.718 Personal history of other venous thrombosis and embolism; Z82.49 Family history of ischemic heart disease and other diseases of the circulatory system; Z83.3 Family history of diabetes mellitus; Z71.6 Tobacco abuse counseling; Z95.820 Peripheral vascular angioplasty status with implants and grafts
CPT/HCPCS: 10081; 10196; 10203

== ENCOUNTER 2019-01-02 12:44 | Inpatient (IN) | payer BC, OTHER ==
[~2019-01-02] VITALS: Ht 172.7 cm; Wt 108.4 kg
[~2019-01-02 12:44] MED LIST changes: +ASPIR 8181 MG PO; +CORLANOR5 MG PO; +COUMADIN 5 MG TA5 M1 PO; +ENOXAPARIN100 MG/11 SUBQ; +LANOXIN 0.250.25 M1 PO; +LYRICA 50 MG50 MG PO
[2019-01-02 12:45] VITALS: BP 127/87
[2019-01-02 13:23] LABS: BASOPHILS 0.8 % (0.0-2.0); EOSINOPHILS 0.6 % (0.0-3.0); HEMATOCRIT 44.2 % (42.0-52.0); HEMOGLOBIN 14.5 gm/dL (14.0-18.0); LYMPHOCYTES 22.3 % (24.0-44.0); MCH 31.3 pg (26.0-34.0); MCHC 32.7 g/dL (28.0-37.0); MCV 95.9 fL (80.0-100.0); MONOCYTES 7.7 % (1.0-8.0); PLATELET COUNT 302 thou/uL (150-400); POLYS 68.6 % (36.0-66.0); RBC 4.61 mil/uL (4.50-6.00); RDW 14.9 % (10.5-14.5); WBC 5.8 thou/uL (4.0-11.0)
[2019-01-02 13:27] LABS: CALCIUM 8.3 mg/dL (8.5-10.1); CREATININE 1.5 mg/dL (0.7-1.3); POTASSIUM 4.6 mmol/L (3.5-5.1)
[2019-01-02 13:35] LABS: TOTAL BILIRUBIN 0.4 mg/dL (<0.1-1.0); TOTAL PROTEIN 5.8 g/dL (6.4-8.2)
[2019-01-02 13:36] LABS: INR 1.1; PROTIME 11.5 Seconds (9.3-11.4)
[2019-01-02] MEDS ORDERED: LASIX 40 MG TAB40 M2 PO (14:10)
[2019-01-02] MEDS ORDERED: SYNTHROID50 MCG PO (14:11)
[2019-01-02] MEDS ORDERED: ELIQUIS5 MG PO (14:12)
[2019-01-02] MEDS ORDERED: POTASSIUM20 PO (14:12)
[2019-01-02 14:34] LABS: URINE BILIRUBIN NEGATIVE (Negative); URINE BLOOD TRACE (Negative); URINE CLARITY CLEAR; URINE COLOR YELLOW; URINE GLUCOSE-RANDOM* 3+ (Negative); URINE KETONES NEGATIVE (Negative); URINE LEUKOCYTES-REFLEX NEGATIVE (Negative); URINE NITRITE-REFLEX NEGATIVE (Negative); URINE PROTEIN (DIPSTICK) 1+ (Negative)
[2019-01-02 14:53] LABS: BACTERIA-REFLEX None Seen /HPF (None Seen); SQUAMOUS 0-3 Few /LPF (0-3)
[2019-01-02 14:54] LABS: CRYSTALS None Seen /LPF (None Seen); HYALINE CASTS 0-3 Few /LPF (None Seen); URINE RBC 0-2 Rare /HPF (0-2); URINE WBC-REFLEX None Seen /HPF (0-5)
[2019-01-02 15:32] VITALS: BP 127/87
--- NOTE | 2019-01-02 16:55 | NUR ---
report received from Jacquelyn/kassi in er @ 4895. pt received to room 358 via stretcher, from er, @ 7504. pt up w/ steady, balanced and coordinated gait. pt w/ up ad eric status. pt aox4. maex4. pt request water to drink. pt achs, blood gluose 342 @ 1652 he states he had breakfast this am but did not take his insulin. pt states that he runs 160-220 on his blood glucose at home. pt co discomfort 07/06 to rt leg wound dt swelling in his ble but denies need for pain medication at this time. pt on room air, no soa, no n/v/d at this time.
[2019-01-02 16:57] VITALS: BP 128/92
[2019-01-02 18:59] VITALS: BP 124/88
[2019-01-02] MEDS ORDERED: LANTUS SUBQ (20:35)
[2019-01-02] MEDS ORDERED: HUMALOG100 UNIT/1 (20:37)
[2019-01-02] MEDS ORDERED: ATRIPLA TABLET1 EACH PO (20:38)
[2019-01-03 00:08] VITALS: BP 98/73
[2019-01-03 04:40] VITALS: BP 111/78
--- NOTE | 2019-01-03 04:47 | NUR ---
Admission assessment completed and home meds verified with patient after shift change. Pt. informed of fluid restriction and verbalized understanding. Medicated for right lower extremity wound pain with some relief. He verbalized he does get short of breath with exertion. Voided per bathroom , encouraged to use urinal for accurate I/O.SR-ST with BBB per tele. Will continue to monitor.
[2019-01-03 06:08] LABS: HEMATOCRIT 43.1 % (42.0-52.0); HEMOGLOBIN 13.7 gm/dL (14.0-18.0); MCH 30.7 pg (26.0-34.0); MCHC 31.9 g/dL (28.0-37.0); MCV 96.3 fL (80.0-100.0); RBC 4.48 mil/uL (4.50-6.00); RDW 15.2 % (10.5-14.5); WBC 6.3 thou/uL (4.0-11.0)
[2019-01-03 06:22] LABS: CALCIUM 7.6 mg/dL (8.5-10.1); CREATININE 1.5 mg/dL (0.7-1.3); PHOSPHORUS 3.4 mg/dL (2.5-4.9); POTASSIUM 3.3 mmol/L (3.5-5.1)
[2019-01-03 06:26] LABS: CHOLESTEROL 118 mg/dL (<200); HDL CHOLESTEROL 43 mg/dL (>40); LDL CHOLESTEROL 53 mg/dL (<100); TC:HDL 2.7 Ratio (Not establshd); TRIGLYCERIDE 111 mg/dL (<150); VLDL 22 mg/dL (<40)
[2019-01-03 06:28] LABS: SERUM ASSESSMENT Clear
[2019-01-03 07:20] VITALS: BP 118/88
--- NOTE | 2019-01-03 07:55 | EKG ---
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1970 Requested By: Vanessa Fenton Order Number: [id number] MD: Roque Perales Measurements Intervals [place] Rate: 109 P: 46 WI: 161 QRS: -115 QRSD: 147 T: 59 QT: 381 QTc: 514 Interpretive Statements Sinus tachycardia RBBB, consider RVH Compared to ECG 07/03/2018 10:31:31 Myocardial infarct finding no longer present Electronically Signed On 01-03-2019 7:55:13 CDT by Roque Perales [email or web address] <ELECTRONICALLY SIGNED> By: Roque Perales MD, [facility] 01/03/19 0755 1344 1344 Roque Perales MD, [facility] /EPI
[2019-01-03 12:05] VITALS: BP 115/90
--- NOTE | 2019-01-03 13:31 | NUR ---
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 Pt with hx uncontrolled diabetes, STEMI, +HIV,+tobacco, CHF. Non compliant behaviors with diabetic meds and diet. Endocronologist following and adjusting medications. Pt also with anasarca gaining nearly 32 lb from reported usual wt, abdominal distension and 2+ bilateral feet. On diuretic. Appetite decreased with distension, but still eating. Encouraged adequate protein intake for wound. See RD education note for further information. Low nutrition risk
--- NOTE | 2019-01-03 14:02 | NUR ---
WOUND CONSULT; THE PATIENT RIGHT LE LAT WAS ASSESSED. A WOUND WAS IDENTIFIED WITH A LARGE AMOUNT OF SEROUS A LITTLE YELLOW TINGED DRAINAGE. THE PATIENT HAS A SUGICAL HISTORY WITH THIS LEG AND SWELLING IN THE PAST WHICH HAS ANKIT UNILATERAL WITH MULTIPLE INFECTIONS. THE EXTREMITY HAS S/S OF CHRONIC EDEMA. RECOMMENDATIONS; XEROFORM, COVER WITH A BOARDER FOAM, CHANGE DAILY/PRN DISCUSSED WITH TIM
--- NOTE | 2019-01-03 14:16 | NUR ---
Patient did not sleep well last night and slept for most of the day. Patient is knowledgeable about his insulin administration.
--- NOTE | 2019-01-03 14:45 | NUR ---
Pt. has a funny sense of humor. 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 Pt. said he didnt sleep well last night and and wanted to rest for the day. Patient is knowledable about his blood suagr. Patient complains of abdomen fullness and increased work of breathing. Gave lasix to help decrease the fluid volume and Pt. says he has relief of pressure in abdomen after lasix. Pt diuresis with clear yellow urine. Patient is on a 2L fluid restriction. Patient was educated and recieved his flu vaccine today.
--- NOTE | 2019-01-03 15:11 | NUR ---
INITIAL ASSESSMENT: Pt evaluated for d/c planning needs. Reviewed chart and spoke with nurse and pt. Pt is alert and oriented. Pt lives in house with spouse and children. Pt was independent with ADL's and is employed. Pt said he had [employer] in the past. Pt uses no DME. Pt plans on returning home on d/c from hospital. Will remain available to assist as needed.
[2019-01-03 15:53] VITALS: BP 113/80
--- NOTE | 2019-01-03 15:59 | NUR ---
I have reviewed the student's documentation.
--- NOTE | 2019-01-03 18:13 | NUR ---
ASSUMED PATIENT CARE AT 0700. A/O X4. 2+ EDEMA BLE. DENIES PAIN. UP AD TRES. RIGHT LEG WOUND CARE PER ORDER. SLOWLY TOWARDS POC GOALS.
[2019-01-03 19:45] VITALS: BP 113/81
[2019-01-04 03:59] VITALS: BP 107/80
[2019-01-04 06:40] LABS: CALCIUM 8.3 mg/dL (8.5-10.1); CREATININE 1.7 mg/dL (0.7-1.3); DIGOXIN 0.3 ng/mL (0.9-2.0); POTASSIUM 3.9 mmol/L (3.5-5.1)
--- NOTE | 2019-01-04 06:42 | NUR ---
PATIENT IS PROGRESSING IN HIS CARE PLAN. VITAL SIGNS STABLE WITH PATIENT HAVING NO COMPLAINTS OF NAUSEA. PATIENT DID COMPLAIN OF RIGHT LOWER LEG PAIN WHICH WAS TREATED EFFECTIVELY THROUGH MEDICATION. FULLY ORIENTED, PATIENT IS ABLE TO CALL APPROPRIATELY FOR NEEDS AND PARTICIPATE IN CARE PLAN. UP AD TRES THROUGHOUT SHIFT, PATIENT APPEARS STRONG AND BALANCED WHEN AMBULATING. PATIENT HAD MINIMAL URINARY OUTPUT. ANXIOUS FOR DISCHARGE, PATIENT IS PREPARED TO STAY AND "GET BETTER". CONTINUE PLAN OF CARE.
[2019-01-04 08:06] VITALS: BP 131/97
[2019-01-04 08:07] LABS: GLYCOHEMOGLOBIN (HGB A1C) 14.9 % (4.8-5.6)
--- NOTE | 2019-01-04 08:16 | HC ---
[facility] [place] [address] CONSULTATION Name: ZARI GASPAR Room #: 358-P ADM IN M.R.#: [id number] Admission: 01/02/19 Attend Phys: Fatou Santos Discharge: Date of : 74 Report #: [id number] THIS REPORT FOR: //name// CC: [facility] physician/PCP Fatou Santos NO PCP DATE OF SERVICE: 01/02/2019 ENDOCRINE CONSULTATION NOTE CONSULTING PHYSICIAN: Dr. Fink. REASON FOR CONSULTATION: Uncontrolled type 2 diabetes mellitus. HISTORY OF PRESENT ILLNESS: This is a 48-year-old male patient who has a fairly complex medical background including significant cardiovascular disease noted for coronary artery disease as well as cardiomyopathy and low ejection fraction of 20% as of recently. Moreover, the patient is known to have hypothyroidism and type 2 diabetes mellitus for the past 25 years. The patient has suffered multiple diabetic complications over the years including near complete blindness in the right eye with limited left eye vision as well as the above stated cardiovascular disease. I actually had seen the patient as a new patient to my practice on 12/05/2018 and we had then agreed to adopt a regimen of Lantus insulin 35 units q.p.m. in addition to Apidra 10 units t.i.d. before meals. However, the patient notes that he has been using only 30-35 units of Lantus and only 5 units of Apidra twice a day. He implied that he had not taken these meds all the time and reviewed his blood glucose values with me utilizing his blood glucose meter, which was available at bedside and a lot of these values ranged in the 300-500 mg/dL range. Unfortunately, the patient was supposed to follow up on 12/19/2018 to review these blood glucose values and adjust his regimen accordingly, but he did not show. Also, the patient has been hypothyroid for many years and is currently on Synthroid 50 mcg daily with which he says he has done well and not had major issues with fatigue, tiredness, or significant body weight changes. The patient is also known to have hyperlipidemia and is supposed to be on atorvastatin therapy and fenofibrate therapy, but admits to a bit of noncompliance with these as well. The patient is hypertensive and seems to uphold his antihypertensive regimen well and reports adequate control on this regimen. The patient was admitted here primarily due to worsening lower extremity edema, especially over the right lower extremity as well as worsening shortness of breath and orthopnea that seemed to have progressed over the past 1-2 weeks with a weight gain in excess of 20 pounds. He was admitted for further care and monitoring. Moreover, he has been dealing with an ongoing right lower extremity wound, for which he had received antibiotic therapy in the past as well. [address] [address] CONSULTATION Name: ZARI GASPAR Room #: 358-P ADM IN M.R.#: [id number] Admission: 01/02/19 Attend Phys: Fatou Santos Discharge: Date of : 74 Report #: [id number] REVIEW OF SYSTEMS: CONSTITUTIONAL: Progressive fatigue, tiredness, weight gain and excessive 20 pounds, but no fever or chills. HEENT: Negative for sore throat, sinus pain, ear drainage. PULMONARY: Noted for orthopnea, PNDs, dyspnea on exertion, intermittent cough, but no hemoptysis. CARDIOVASCULAR: Worsening generalized edema involving lower extremities, orthopnea PNDs but not chest pain, palpitations or syncope. GASTROINTESTINAL: Negative for significant changes in bowel movement frequency, nausea, vomiting, but noted for intermittent abdominal distention and discomfort. GENITOURINARY: Negative for dysuria, frequency or hematuria. MUSCULOSKELETAL: Noted for lower extremity edema, worse on the right side with an ongoing lower extremity ulcer that is a source of discomfort, right knee pain and swelling. SKIN: Right lower extremity rash, ulcer and bruising. ENDOCRINOLOGY: Diabetes mellitus, uncontrolled; severe hyperglycemia; hypothyroid, on Synthroid therapy. NEUROLOGY: Negative for loss of consciousness, seizures or severe frequent headaches. PSYCHIATRIC: Negative for hallucinations, delusions, or other abnormalities. Otherwise, review of systems noncontributory other than those mentioned in HPI. PAST MEDICAL HISTORY: Noted for; 1. Type 2 diabetes mellitus as outlined above. 2. Advanced diabetic retinopathy, right eye blindness and limitation of the left eye vision. 3. Hypothyroidism. 4. Hyperlipidemia. 5. Hypertension. 6. Coronary artery disease, status post SC and stent placement in 06/2018. 7. Congestive heart failure, cardiomyopathy, last known ejection fraction is 20%. 8. Chronic kidney disease, stage 3A. 9. Human immunodeficiency virus positive. 10. Diabetic neuropathy. 11. Lower extremity ulcer. 12. History of DVT. 13. Peripheral arterial disease. OUTPATIENT MEDICATIONS: Include aspirin 81 mg daily, Plavix 75 mg daily, digoxin 0.25 mg daily, losartan 25 mg daily, furosemide 40 mg daily, levothyroxine 50 mcg daily, atorvastatin 40 mg daily, Lantus insulin 30 units daily, Lyrica 100 mg b.i.d., carvedilol 12.5 mg b.i.d., Apidra 5 units t.i.d. more likely than not b.i.d., Ambien 5 mg daily. [facility] [address] [place] [address] CONSULTATION Name: ZARI GASPAR Room #: 358-P [facility] IN M.R.#: [id number] Admission: 01/02/19 Attend Phys: Fatou Gardner Tom Discharge: Date of : 74 Report #: [id number] ALLERGIES: No known drug allergies. FAMILY HISTORY: Noncontributory. SOCIAL HISTORY: The patient is . He is an active smoker of 1 pack per day. PHYSICAL EXAMINATION: GENERAL: Pleasant -Montserratian male patient who is not in apparent pain or distress. VITAL SIGNS: Blood pressure is 128/92 mmHg, heart rate is 118 per minute, temperature 36.4 Celsius, respiration rate is 16. CONSTITUTIONAL: The patient appears comfortable, but sitting upright in bed. No apparent pain or distress. HEENT: Anicteric sclerae. Intact extraocular motions. NECK: Supple, without JVD, carotid bruits or lymphadenopathy. I do not appreciate thyromegaly. CHEST: Noted for moderate air entry bilaterally with scattered rales and rhonchi. No wheezes. Bibasilar crackles are appreciated. HEART: Regular rate and rhythm with a systolic murmur. ABDOMEN: Distended, but soft, lax, nontender, no guarding, no organomegaly. Active bowel sounds. EXTREMITIES: Lower extremity exam is noted for +1 ankle edema bilaterally, but a bit more pronounced over the right side. He has 1 x 2 cm ulcer noted over the lateral aspect of the right leg. NEUROLOGIC: Awake, alert and oriented to time, place and person. The remainder of examination is nonfocal other than for moderate sensory deficit over both lower extremities. PSYCHIATRIC: Pleasant, interactive, appropriate. Normal mood and affect. SKIN: Other than the right lower extremity ulcer, no rash or other abnormalities are noted. LABORATORY RESULTS: Blood glucose here was 342 mg/dL. Otherwise, sodium 141, potassium 4.6, chloride 181, CO2 of 25, anion gap 9, BUN 22, creatinine 1.5, AST 118, total bilirubin 0.4, calcium 8.3, magnesium 1.7, uric acid 3.9, alkaline phosphatase 159, ALT 118, total protein 5.8, albumin 2.0. GFR 61. CPK 218. BNP 2929. CRP 27.6. Hemoglobin 14.5, hematocrit 44.2, white blood count 5.8, platelets 302. ASSESSMENT AND PLAN: 1. Type 2 diabetes mellitus. Uncontrolled as per his reported blood glucose values which were reviewed on his personal meter earlier today. Unfortunately, the patient had been largely noncompliant with the treatment plan. Specifically in that, he had taken considerably less Apidra than recommended and [place] [address] CONSULTATION Name: ZARI GASPARANGYADONAY Room #: 358-P [facility] IN M.R.#: [id number] Admission: 01/02/19 Attend Phys: Fatou Santos Discharge: Date of : 74 Report #: [id number] The patient was counseled extensively about the necessity of achieving and maintaining adequate glycemic control, so as to prevent complications and contain existing complications. I highlighted the fact that his existing significant cardiovascular disease adds to this necessity which he understands well. The patient will certainly need to be insulin based in the form of a basal bolus therapy and I will attempt to utilize his hospital stay in order to optimize this regimen and maintain that going forward. Additionally, given the patient's significant background for congestive heart failure as well as for coronary artery disease, I believe that he would be a very good candidate for therapy with an SGLT2 inhibitor, namely Jardiance 10 mg daily. However, since this is not a formulary here, I will write this on his way back home. I stressed the importance of routine committed followup in order to be able to adjust his regimen as needed and achieve the desired range of control. In addition to the above, I will start the patient here Lantus insulin 36 units q.p.m., in addition to 12 units of Humalog t.i.d. before meals and support with Humalog supplemental scale, moderate scale. Blood glucose monitoring will commence before meals and at bedtime. 2. Hypothyroidism. The patient has been on stable dose of levothyroxine at 50 mcg daily. I will order a TSH and free T4 to assess his current level of control, especially in view of active heart failure issues. 3. Hyperlipidemia. The patient's level of lipid control is not satisfactory as of his last lipid check. The patient has had significant issues with compliance that have held that back. I will ask for a lipid panel to update his state and adjust his regimen as needed. 4. Hypertension. The patient's level of blood pressure control is adequate with the current regimen. He is to continue with the same. 5. Diabetic neuropathy. The patient is to continue with the current regimen of pregabalin as he seems to have adequate control with that at the current dose of 100 mg b.i.d. I certainly appreciate this consultation. <ELECTRONICALLY SIGNED> By: Ashanti Yanez MD 01/04/19 0816 [id number] [id number] Ashanti Yanez MD /nt
[2019-01-04 11:37] VITALS: BP 123/96
--- NOTE | 2019-01-04 12:06 | NUR ---
SW reviewed chart and spoke with nursing and attending physician. Pt is progressing towards goals for discharge. Discharge home is anticipated for tomorrow. SW met with pt at bedside to discuss discharge plan. Pt verbalized understanding and is agreeable with plan. Pt denies needing any HH or having any discharge needs. Pt's PCP was Dr. Alexandr Escobar at [facility]. Pt states that Dr. Escobar left the practice and he was assigned to another physician. Unsure of physician's name. Pt was hoping to find Dr. Escobar. SW placed call to [facility]. Confirmed Dr. Escobar was not there and they do not know where he is currently practicing. SW is following to assist as needed with discharge planning.
[2019-01-04 15:28] VITALS: BP 105/70
--- NOTE | 2019-01-04 17:46 | NUR ---
PT VOIDED ADEQUATELY AFTER IV LASIX TWICE TODAY. PT UP AT TRES, VOIDS PER URINAL, VSS. PT BRINGING UP CHANGE OF CLOTHES, PT TO SHOWER AFTER CLOTHES ARRIVE AND DO WOUND DRESSING CHANGE THEN.
--- NOTE | 2019-01-04 18:57 | HC ---
[facility] [place] [address] CONSULTATION Name: ZARI GASPARANGYADONAY Room #: 358-P ADM IN M.R.#: [id number] Admission: 01/02/19 Attend Phys: Fatou Santos Discharge: Date of : 74 Report #: [id number] THIS REPORT FOR: //name// CC: [facility] physician/PCP Fatou KEMP PCP DATE OF SERVICE: 01/03/2019 CHIEF COMPLAINT: Ulceration to the right leg. HISTORY OF PRESENT ILLNESS: This is a 48-year-old male patient who was admitted to the hospital with poorly controlled diabetes and some volume overload, and an ulceration to his right pretibial region for which I have been asked to see him. The patient has a past history significant for poorly controlled diabetes, HIV infection, previous myocardial infarction and previous gangrenous changes of the left great toe. The patient has a little bit of pain in his right leg, states that the ulcer developed about a month ago. SOCIAL HISTORY: Positive for current smoker, negative for alcohol use or drug use. FAMILY HISTORY: Positive for heart disease and diabetes. MEDICATIONS: Include Lasix, Synthroid, Eliquis, K-Dur, carvedilol, clopidogrel, Lipitor, Cozaar, insulin, pregabalin and aspirin. REVIEW OF SYSTEMS: CONSTITUTIONAL: The patient denies fever, chills or weight loss. NEUROLOGICAL: The patient denies focal weakness, numbness or tingling. EYES: The patient denies visual changes, redness or drainage. ENT: The patient denies earache, nasal drainage or sore throat. CARDIOVASCULAR: The patient denies chest pain or palpitations. He does have some dyspnea on exertion. He denies orthopnea currently. PULMONARY: The patient denies cough or current shortness of breath. GASTROINTESTINAL: The patient denies nausea, vomiting, diarrhea or abdominal pain. ORTHOPEDIC: The patient does complain of edema in his legs as well as the ulceration on his right leg. Other systems in a 14-point review of systems are negative. PHYSICAL EXAMINATION: VITAL SIGNS: At this time include temperature 36.3, pulse 92, respiratory rate 14, blood pressure 113/80. GENERAL: This is a chronically ill-appearing male patient who appears to be in minimal distress. [address] [address] CONSULTATION Name: ZARI GASPARADONAY Room #: 358- ADM IN M.R.#: [id number] Admission: 01/02/19 Attend Phys: Fatou Santos Discharge: Date of : 74 Report #: [id number] HEENT: Head is normocephalic. Nose and throat clear. NECK: Supple. LUNGS: Clear. ABDOMEN: Soft. Bowel sounds present. EXTREMITIES: Examination of the lower extremities demonstrates palpable distal pulses. He has 2 to 3+ edema bilaterally. He has a circular ulceration on the anterolateral portion of the right lower leg, multiple areas of scarring from previous ulcerations or traumatic injuries. Toes are intact with no ulceration on the feet. LABORATORY DATA: Include white blood cell count 6.2 with hemoglobin of 13.7, hematocrit of 43.1, platelet count 329,000. Sodium 140, potassium 3.3, chloride 105, CO2 of 29, BUN 25, creatinine 1.5, glucose 68, calcium 7.6, albumin 2.0. CLINICAL IMPRESSION: 1. Traumatic wound versus venous-type ulceration to the right lower leg. 2. Human immunodeficiency virus infection. 3. Diabetes with hyperglycemia. 4. Coronary artery disease. 5. Severe protein-calorie malnutrition, albumin 2.0. RECOMMENDATIONS: At this point in time, we will use silver alginate to the open ulceration, and then use gentle compression with Kerlix and Roberto. I have cautioned him that if he develops increasing dyspnea after his leg is wrapped, that we would need to unwrap his leg. He seems to have no symptoms now and is able to lay flat in bed, so I think we can gently compress his leg for better wound healing, especially due to one of the facts that he is currently being diuresed. I recommend aggressive nutritional support to maximize wound healing and glycemic control. PT, OT as tolerated. I appreciate being asked to see him in consultation. <ELECTRONICALLY SIGNED> By: Davi Ordonez MD 01/04/19 1857 1749 [id number] Davi Ordonez MD /nt
[2019-01-04 19:05] VITALS: BP 136/76
[2019-01-05] VITALS (13 sets, daily range): BP systolic 112–128; BP diastolic 83–98
--- NOTE | 2019-01-05 04:13 | NUR ---
PATIENT IS ADVANCING SLOWLY IN HIS CARE PLAN. VITAL SIGNS STABLE WITH PATIENT HAVING NO COMPLAINTS OF NAUSEA. PATIENT DID COMPLAIN OF PAIN IN RIGHT LOWER LEG WHICH WAS TREATED EFFECTIVELY THROUGH MEDICATION. FULLY ORIENTED, PATIENT IS ABLE TO PARTICIPATE IN CARE AND CALL APPROPRIATELY FOR NEEDS. WOUND CARE PROVIDED PER PROTOCOL. PATIENT WAS UP AD TRES THROUGHOUT SHIFT INCIDENT FREE, AND APPEARED STRONG AND BALANCED WHEN AMBULATING. POSSIBLE DISCHARGE TODAY WITH PATIENT HESITANT TO RETURN HOME. HE STATES THAT HE DOESN'T "FEEL LIKE I'M FULLY HEALED".
[2019-01-05 05:40] LABS: CALCIUM 8.2 mg/dL (8.5-10.1); CREATININE 1.6 mg/dL (0.7-1.3); POTASSIUM 3.9 mmol/L (3.5-5.1)
[2019-01-05] MEDS ORDERED: DIGOXIN250 MCG PO (09:42)
[2019-01-05] MEDS ORDERED: CARVEDILOL12.5 MG PO (09:43)
[2019-01-05] MEDS ORDERED: FLONASE 0.05%50 MCG NASAL (09:47)
[2019-01-05] MEDS ORDERED: JARDIANCE10 MG PO (11:16)
--- NOTE | 2019-01-05 12:21 | NUR ---
DISCHARGE NOTE: SW reviewed chart and spoke with nursing and attending physician. Pt is medically stable for discharge home today. SW met with pt at bedside to discuss discharge plan. Pt denies having and discharge needs. Pt has script to provide to his employer for being off from work this week while in the hospital. No SW needs identified at this time, but is available to assist should needs arise.
--- NOTE | 2019-01-05 13:43 | NUR ---
WOUND CARE F/U; D/C WOUND CARE EDUCATION GIVEN THOROUGHLY. PROVIDED A FEW SUPPLIES FOR A FEW DAYS. MUCH LESS PAIN TODAY SINCE ADMISSION. THE WOUND BED LOOKS MORE HEALTHY. RECOMMENDATIONS; 1-FOLLOW UP IN THE WOUND CLINIC OF CHOICE. 2-DISCUSSED S/S OF INFECTION WHEN TO SEEK CARE. 3-ELEVATE THIS LEG MUCH POSSSIBLE.
--- NOTE | 2019-01-05 14:28 | NUR ---
PT DISCHARGED HOME WITH SELF CARES...GIVEN RX X 4...WILL FOLLOW UP WITH CARDIO AND BROKER ASSISTANT AND PCP IN 2 WEEKS...WORK RELEASE GIVEN TO RET TO WORK ON WEDNESDAY...
== END 2019-01-05 14:19 | disposition home or self-care (01) | DRG 291 ==
LOC: ER 12:44 → EROBS 15:11 → 3W 16:22
PROVIDERS: Internal Medicine; Internal Medicine Cardiovascular Disease; Physician Assistant; ADMIT Hospitalist
DX: I13.0 Hypertensive heart and chronic kidney disease with heart failure and stage 1 through stage 4 chronic kidney disease, or unspecified chronic kidney disease (principal); E43 Unspecified severe protein-calorie malnutrition; L97.909 Non-pressure chronic ulcer of unspecified part of unspecified lower leg with unspecified severity; I50.20 Unspecified systolic (congestive) heart failure; E78.5 Hyperlipidemia, unspecified; E87.70 Fluid overload, unspecified; E11.319 Type 2 diabetes mellitus with unspecified diabetic retinopathy without macular edema; E11.22 Type 2 diabetes mellitus with diabetic chronic kidney disease; H54.61 Unqualified visual loss, right eye, normal vision left eye; E03.9 Hypothyroidism, unspecified; N18.3 Chronic kidney disease, stage 3 (moderate); E11.65 Type 2 diabetes mellitus with hyperglycemia; I25.5 Ischemic cardiomyopathy; I25.10 Atherosclerotic heart disease of native coronary artery without angina pectoris; E11.40 Type 2 diabetes mellitus with diabetic neuropathy, unspecified; E11.51 Type 2 diabetes mellitus with diabetic peripheral angiopathy without gangrene; Z86.718 Personal history of other venous thrombosis and embolism; Z95.5 Presence of coronary angioplasty implant and graft; I25.2 Old myocardial infarction; Z82.49 Family history of ischemic heart disease and other diseases of the circulatory system; Z83.3 Family history of diabetes mellitus; Z68.36 Body mass index [BMI] 36.0-36.9, adult; Z71.6 Tobacco abuse counseling; Z79.82 Long term (current) use of aspirin; Z79.899 Other long term (current) drug therapy; Z23 Encounter for immunization
CPT/HCPCS: 10879

== ENCOUNTER 2019-03-13 07:35 | Emergency (ER) | payer BC, OTHER ==
[~2019-03-13] VITALS: Ht 172.7 cm; Wt 108.4 kg
[~2019-03-13 07:35] MED LIST changes: +DIGOXIN250 MCG PO; +ELIQUIS5 MG PO; +FLONASE 0.05%50 MCG NASAL; +HUMALOG100 UNIT/1; +JARDIANCE10 MG PO; +LANTUS SUBQ; +LASIX 40 MG TAB40 M2 PO; +POTASSIUM20 PO
[2019-03-13 08:27] LABS: ABSOLUTE NEUTROPHILS 3.1 thou/uL (1.4-8.2); BASOPHILS 1.3 % (0.0-2.0); HEMATOCRIT 47.4 % (42.0-52.0); HEMOGLOBIN 15.2 gm/dL (14.0-18.0); LYMPHOCYTES 27.8 % (24.0-44.0); MCH 30.6 pg (26.0-34.0); MCV 95.7 fL (80.0-100.0); MONOCYTES 10.2 % (1.0-8.0); PLATELET COUNT 359 thou/uL (150-400); POLYS 59.7 % (36.0-66.0); RBC 4.95 mil/uL (4.50-6.00); RDW 15.3 % (10.5-14.5); WBC 5.1 thou/uL (4.0-11.0)
[2019-03-13 10:39] LABS: ANION GAP 7 mmol/L (7-16); BUN 16 mg/dL (7-18); CALCIUM 8.8 mg/dL (8.5-10.1); CHLORIDE 96 mmol/L (98-107); CO2 30 mmol/L (21-32); CREATININE 1.4 mg/dL (0.7-1.3); GLUCOSE 466 mg/dL (74-106); SODIUM 133 mmol/L (136-145)
[2019-03-13 10:50] LABS: ALBUMIN 2.3 g/dL (3.4-5.0); DIRECT BILIRUBIN 0.3 mg/dL (<0.1-0.2); SGOT 52 U/L (15-37); SGPT 44 U/L (30-65); TOTAL BILIRUBIN 0.5 mg/dL (<0.1-1.0); TOTAL PROTEIN 7.1 g/dL (6.4-8.2); TROPONIN-I <0.06 ng/mL (<0.06)
[2019-03-13] MEDS ORDERED: TORSEMIDE20 MG PO (12:01)
[2019-03-13 12:26] VITALS: BP 127/93
--- NOTE | 2019-03-14 08:49 | EKG ---
[place] [address] [facility] [place] [address] ELECTROCARDIOGRAM REPORT Name: ZARI GASPAR [id number] Admission: 03/13/19 Attend Phys: Discharge: 03/13/19 Date of : 74 Report #: [id number] THIS REPORT FOR: //name// [facility] ED Test Date: 2019-03-13 Test Time: 07:46:01 Pat Name: ZARI GASPAR Department: Room: Gender: Physician Support Coordinator: MARIBETH : 1970 Requested By: Ember Juarez Order Number: [id number] MD: Roque Perales Measurements Intervals [place] Rate: 112 P: 51 CT: 144 QRS: -113 QRSD: 150 T: 58 QT: 368 QTc: 503 Interpretive Statements Sinus tachycardia RBBB and LAFB Compared to ECG 01/02/2019 13:44:14 No significant change was found Electronically Signed On 03-14-2019 8:49:00 BIBLICAL STUDIES PROFESSOR by Roque Perales [email or web address] <ELECTRONICALLY SIGNED> By: Roque Perales MD, [facility] 03/14/19 0849 0746 07 Roque Perales MD, [facility] /EPI
== END 2019-03-13 12:26 | disposition home or self-care (01) ==
LOC: ER 07:35
PROVIDERS: Emergency Medicine
DX: R06.00 Dyspnea, unspecified (principal); E03.9 Hypothyroidism, unspecified; I25.2 Old myocardial infarction; E11.22 Type 2 diabetes mellitus with diabetic chronic kidney disease; N18.3 Chronic kidney disease, stage 3 (moderate); F17.210 Nicotine dependence, cigarettes, uncomplicated; Z86.718 Personal history of other venous thrombosis and embolism

== ENCOUNTER 2019-03-26 17:41 | Inpatient (IN) | payer BC, OTHER ==
[~2019-03-26] VITALS: Ht 172.7 cm; Wt 106.1 kg
--- NOTE | ~2019-03-26 | HC ---
[facility] [place] [address] CONSULTATION Name: ZARI GASPAR Room #: 200-I [facility] IN M.R.#: [id number] Admission: 03/26/19 Attend Phys: Jah Guzman MD Discharge: 03/31/19 Date of : 74 Report #: [id number] THIS REPORT FOR: //name// CC: [facility] physician/PCP Jah Guzman DATE OF SERVICE: 03/31/2019 HISTORY OF PRESENT ILLNESS: We were asked to see the patient regarding right lower extremity arterial occlusive disease. The patient has a nonhealing lesion in the lateral right leg that has been progressive over the last several months. The patient has a history of diabetes and was admitted on 03/26/2019 with heart failure symptoms. Arteriography done today shows occlusion of the right superficial femoral artery with isolated popliteal segment and possible posterior tibial reconstitution distally in the leg. The patient states he has had a previous revascularization done. PAST MEDICAL HISTORY: Significant for diabetes mellitus and heart failure. The patient also has had a fasciotomy in the right lower extremity with wound healing problems after arterial thrombosis. He is treated for HIV claims to have a 0 viral count else myocardial dysfunction characterized with an ejection fraction of 15% and apical clot. MEDICATIONS: At home includes, Jardiance, Plavix, Lipitor, Cozaar, Lanoxin, carvedilol, Corlanor, aspirin, Lyrica, torsemide. ALLERGIES: None known. SOCIAL HISTORY: The patient states he has just quit smoking. REVIEW OF SYSTEMS: According to the chart. CONSTITUTIONAL: Denies fever or chills. EYES: Denies vision change, eye pain. HEENT: Denies hearing changes, drainage from the ears or sinuses. RESPIRATORY: As mentioned, shortness of breath on admission. CARDIAC: Fluid retention on admission. GASTROINTESTINAL: Denies nausea, vomiting, abdominal pain. GENITOURINARY: Denies burning, frequency or dysuria. MUSCULOSKELETAL: Denies bone and joint pain. SKIN: Denies rash or infection. NEUROLOGIC: Denies motor or sensory dysfunction. PHYSICAL EXAMINATION: GENERAL: The patient is lying in bed, nearly fully clothed, heart rate is 104. [facility] [address] [place] [address] CONSULTATION Name: ZARI GASPARADONAY Room #: 200-I [facility]#: [id number] Admission: 03/26/19 Attend Phys: Jah Guzman MD Discharge: 03/31/19 Date of : 74 Report #: [id number] VITAL SIGNS: Blood pressure 122/95, temperature 36.4, respiratory rate 18, O2 sat 100 on room air. On physical, the patient is mild centripetal obesity. HEENT: Normocephalic. Pupils are round, equal. No scleral icterus, no arcus. NECK: No mass, no bruit. CHEST: Clear to auscultation anteriorly. HEART: Rhythm regular. ABDOMEN: Soft, no mass. EXTREMITIES: Leathery skin. We note a covered wound of the right lateral díaz. I do not feel distal pulses in the right lower extremity. IMPRESSION: I discussed the arteriographic findings with the patient is not clear that there is good situation for revascularization. It was also not clear whether there was conduit available in addition surgery would have risk with the poor ejection fraction. In total, I suspect the risks exceed the potential reward, but left unchecked the patient may be headed toward amputation. This may be the safest option, all things considered. Thank you for the consult. By: 1322 1728 Dale Morel MD /nt
[~2019-03-26 17:41] MED LIST changes: +TORSEMIDE20 MG PO
[2019-03-26 17:43] VITALS: BP 135/99
[2019-03-26 19:26] LABS: ABSOLUTE NEUTROPHILS 3.3 thou/uL (1.4-8.2); EOSINOPHILS 0.4 % (0.0-3.0); HEMATOCRIT 45.5 % (42.0-52.0); HEMOGLOBIN 14.6 gm/dL (14.0-18.0); MCH 30.7 pg (26.0-34.0); MCHC 32.2 g/dL (28.0-37.0); MCV 95.6 fL (80.0-100.0); MONOCYTES 6.2 % (1.0-8.0); PLATELET COUNT 210 thou/uL (150-400); POLYS 70.4 % (36.0-66.0); RBC 4.76 mil/uL (4.50-6.00); RDW 15.3 % (10.5-14.5); WBC 4.6 thou/uL (4.0-11.0)
[2019-03-26 20:00] LABS: ANION GAP 8 mmol/L (7-16); BUN 19 mg/dL (7-18); CALCIUM 8.9 mg/dL (8.5-10.1); CHLORIDE 97 mmol/L (98-107); CO2 27 mmol/L (21-32); CREATININE 1.5 mg/dL (0.7-1.3); MAGNESIUM 1.5 mg/dL (1.8-2.4); POTASSIUM 3.9 mmol/L (3.5-5.1); SODIUM 132 mmol/L (136-145); TROPONIN-I <0.06 ng/mL (<0.06)
[2019-03-26 20:01] LABS: GLUCOSE 536 mg/dL (74-106)
[2019-03-26 21:03] VITALS: BP 135/99
[2019-03-26 22:28] VITALS: BP 139/103
[2019-03-27 05:23] VITALS: BP 134/98
[2019-03-27 08:01] VITALS: BP 136/94
[2019-03-27 08:12] LABS: CALCIUM 9.2 mg/dL (8.5-10.1); CREATININE 1.5 mg/dL (0.7-1.3); MAGNESIUM 1.8 mg/dL (1.8-2.4); POTASSIUM 3.3 mmol/L (3.5-5.1)
[2019-03-27 08:34] LABS: DIGOXIN 1.3 ng/mL (0.9-2.0)
--- NOTE | 2019-03-27 13:30 | 2DMMODE ---
[facility] [address] [place] [address] 2 D/M-MODE ECHOCARDIOGRAM Name: CHASITYZARI EASTON Room #: 200-I ADM IN M.R.#: [id number] Admission: 03/26/19 Attend Phys: Behzad Stark, Discharge: Date of : 74 Report #: [id number] THIS REPORT FOR: //name// APPROVED REPORT Study performed: 03/27/2019 12:32:16 EXAM: Comprehensive 2D, Doppler, and color-flow Echocardiogram Patient Location: Echo lab Room #: 200 Status: routine BSA: 2.20 HR: 110 bpm BP: 136/94 mmHg Rhythm: Tachycardia Other Information Study Quality: Good Indications Congestive Heart Failure Diabetes Dyspnea Cardiomyopathy Hypertension/HDD 2D Dimensions RVDd: 50.57 mm IVSd: 9.03 (7-11mm) LVOT Diam: 19.58 (18-24mm) LVDd: 56.88 mm PWd: 8.87 (7-11mm) Ascending Ao: 28.39 (22-36mm) LVDs: 53.53 (25-40mm) Aortic Root: 28.14 mm IVC: 26.00 mm Volumes Left Atrial Volume (Systole) Single Plane 4CH: 66.98 mL Single Plane 2CH: 85.62 mL LA ESV Index: 40.00 mL/m2 Aortic Valve AoV Peak Yoan.: 0.75 m/s AO Peak Gr.: 2.25 mmHg LVOT Max P.21 mmHg LVOT Max V: 0.55 m/s CRISTIAN Vmax: 2.[address] [facility] [address] [place] [address] 2 D/M-MODE ECHOCARDIOGRAM Name: ZARI GASPAR Room #: 200-I [facility] IN [facility]#: [id number] Admission: 03/26/19 Attend Phys: Behzad Stark, Discharge: Date of : 74 Report #: [id number] Pulmonary Valve PV Peak Yoan.: 0.57 m/s PV Peak Gr.: 1.30 mmHg Tricuspid Valve TR Peak Yoan.: 2.67 m/s TR Peak Gr.: 28.46 mmHg PA Pressure: 43.00 mmHg Left Ventricle Left ventricle is dilated. There is severe global hypokinesis of the left ventricle. Apical, laminar thrombus suggested. There is normal left ventricular wall thickness. Left ventricular ejection fraction is severely decreased. LVEF is 15%. Grade IV - fixed restrictive diastolic dysfunction. Right Ventricle Right ventricle is dilated. Right ventricle is hypokinetic. Atria Left atrium is dilated. Right atrium is dilated. Aortic Valve The aortic valve is normal in structure. No aortic regurgitation is present. There is no aortic valvular stenosis. Mitral Valve The mitral valve is normal in structure. Moderate mitral regurgitation. No evidence of mitral valve stenosis. Tricuspid Valve The tricuspid valve is normal in structure. There is moderate tricuspid regurgitation. Estimated PAP 43 mmHg. There is moderate pulmonary hypertension. Pulmonic Valve The pulmonary valve is normal in structure. Mild pulmonic regurgitation. Great Vessels The aortic root is normal in size. The inferior vena cava is dilated with no inspiratory collapse. Pericardium Trace pericardial effusion. [facility] [address] [address] 2 D/M-MODE ECHOCARDIOGRAM Name: ZARI GASPARADONAY Room #: 200-I [facility] IN [facility].#: [id number] Admission: 03/26/19 Attend Phys: Behzad Stark, Discharge: Date of : 74 Report #: [id number] <Conclusion> Left ventricular ejection fraction is severely decreased. There is severe global hypokinesis of the left ventricle. Apical, laminar thrombus suggested. LVEF is 15%. Severe diastolic dysfunction Four chamber enlargement. The aortic valve is normal in structure. No aortic regurgitation or stenosis. The mitral valve is normal in structure. Moderate mitral regurgitation. There is moderate tricuspid regurgitation. Estimated pulmonary artery pressure of 43 mmHg. Trace pericardial effusion. <ELECTRONICALLY SIGNED> By: Roque Perales MD, FACC 03/27/19 1330 1330 1330 Roque Perales MD, FACC /INF
[2019-03-27 17:05] VITALS: BP 104/72
[2019-03-27 22:28] VITALS: BP 86/70
[2019-03-27 23:55] VITALS: BP 90/69
[2019-03-28 00:10] LABS: ESTIMATED AVERAGE GLUCOSE > 398 mg/dL (()); GLYCOHEMOGLOBIN (HGB A1C) > 15.5 % (4.8-5.6)
[2019-03-28 00:10] LABS: ESTIMATED AVERAGE GLUCOSE > 398 mg/dL (()); GLYCOHEMOGLOBIN (HGB A1C) > 15.5 % (4.8-5.6)
[2019-03-28 05:18] VITALS: BP 107/80
[2019-03-28 05:52] LABS: HEMATOCRIT 44.4 % (42.0-52.0); HEMOGLOBIN 13.7 gm/dL (14.0-18.0); MCH 29.7 pg (26.0-34.0); MCV 95.9 fL (80.0-100.0); RBC 4.63 mil/uL (4.50-6.00); RDW 15.3 % (10.5-14.5); WBC 5.4 thou/uL (4.0-11.0)
[2019-03-28 05:57] LABS: CALCIUM 7.9 mg/dL (8.5-10.1); CREATININE 1.3 mg/dL (0.7-1.3)
[2019-03-28 06:07] LABS: POTASSIUM 2.9 mmol/L (3.5-5.1)
[2019-03-28 07:21] VITALS: BP 113/94
--- NOTE | 2019-03-28 09:51 | EKG ---
[address] [place] [address] ELECTROCARDIOGRAM REPORT Name: ZARI GASPAR Room #: 200-I ADM IN M.R.#: [id number] Admission: 03/26/19 Attend Phys: Jha Guzman MD Discharge: Date of : 74 Report #: [id number] THIS REPORT FOR: //name// [facility] Test Date: 2019-03-26 Test Time: 19:58:51 Pat Name: ZARI GASPAR Department: Room: 200 Gender: M Inspector Poising: JOYCE : 1970 Requested By: Robert Malagon Order Number: [id number] MD: Roque Perales Measurements Intervals [place] Rate: 107 P: 53 VA: 153 QRS: -112 QRSD: 153 T: 54 QT: 400 QTc: 534 Interpretive Statements Sinus tachycardia RBBB and LAFB Compared to ECG 03/13/2019 07:46:01 No significant changes Electronically Signed On 03-28-2019 9:50:21 VALET by Roque Perales [email or web address] <ELECTRONICALLY SIGNED> By: Roque Perales MD, [facility] 03/28/19 0950 57 57 Roque Perales MD, FACC /EPI
--- NOTE | 2019-03-28 10:07 | EKG ---
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
--- NOTE | 2019-03-28 10:20 | HC ---
[facility] [place] [address] [place] [address] CONSULTATION Name: ZARI GASPAR Room #: 200-I ADM IN .R.#: [id number] Admission: 03/26/19 Attend Phys: Jah Guzman MD Discharge: Date of : 74 Report #: [id number] THIS REPORT FOR: //name// CC: [facility] physician/PCP Behzad Stark DATE OF SERVICE: 03/27/2019 ENDOCRINE CONSULTATION NOTE CONSULTING PHYSICIAN: Fidencio Napoles M.D. REASON FOR CONSULTATION: Uncontrolled type 2 diabetes mellitus. HISTORY OF PRESENT ILLNESS: This is a 48-year-old male patient whose medical background is significant for multiple medical issues including type 2 diabetes mellitus as well as extensive heart disease including an GA in 06/2018 followed by stent placement. The patient is also known to have hypothyroidism as well as hyperlipidemia. The patient presented to the ER yesterday with complaints of progressive shortness of breath, dyspnea on exertion, as well as generalized body edema including his abdomen back, legs and ankles. It was determined then to admit him for further care and monitoring. Again, the patient is noted to have type 2 diabetes mellitus, which dates to about 25 years. Most recently, the patient has been placed on Lantus insulin 24 units at bedtime, Humalog insulin 4 units before meals in addition to Jardiance 10 mg daily, which he says his insurance refused to cover and as such he has never actually gone on it. On further discussions with the patient, he indicated that he has been feeling too lethargic and has been practically bedbound over the past few weeks to where he had not taken any Humalog insulin and has been sketchy in taking the Lantus insulin. When asked about his blood glucose outlook, he indicated that he has not been monitoring much at all during this timeframe as well. 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 The patient has an extensive cardiac background noted for coronary artery disease, ischemic cardiomyopathy, congestive heart failure and is status post stent placements in the past. He is also hypertensive, hyperlipidemic. The patient has been hypothyroid for many years and is currently on levothyroxine 50 mcg daily[address] [address] CONSULTATION Name: ZARI GASPAR Room #: 200-I [facility] IN ..#: [id number] Admission: 03/26/19 Attend Phys: Jah Guzman MD Discharge: Date of : 74 Report #: [id number] REVIEW OF SYSTEMS: CONSTITUTIONAL: Fatigue, tiredness, progressive fluid retention and associated weight gain, but no fever or chills. HEENT: Negative for sinus pain, sinus congestion, ear drainage. PULMONARY: Noted for progressive shortness of breath, dyspnea on exertion, cough, but no hemoptysis. CARDIAC: Noted for generalized body edema, lower extremity swelling, dyspnea on exertion, orthopnea, but no chest pain. GASTROINTESTINAL: Abdominal distention, abdominal discomfort, nausea, but no vomiting. NEUROLOGY: Extensive baseline issues with diabetic peripheral neuropathy, but not loss of consciousness, seizure activity or frequent severe headaches. PSYCHIATRIC: Depressed mood. Occasional anxiety. No hallucinations or delusions. SKIN: Extensive stasis dermatitis over both lower extremities, nonhealing right leg ulcer. Otherwise, review of systems noncontributory other than those mentioned in HPI. PAST MEDICAL HISTORY: 1. Type 2 diabetes mellitus. 2. Diabetic retinopathy status post near complete blindness in the right eye, ongoing diabetic retinopathy issues in the left eye. 3. Peripheral diabetic neuropathy. 4. Chronic kidney disease. 5. CAD, status post GA, status post stent placements. 6. Hypertension. 7. Hyperlipidemia. 8. Active liver disease. 9. Congestive heart failure. 10. Ischemic cardiomyopathy. 11. History of DVT. 12. HIV. 13. Peripheral arterial disease. 14. Tobacco abuse. OUTPATIENT MEDICATIONS: Include: 1. Jardiance 10 mg daily. 2. Plavix 75 mg daily. 3. Atorvastatin 40 mg daily. 4. Losartan 25 mg daily. 5. Digoxin 0.25 mg daily. 6. Carvedilol 12.5 mg b.i.d. 7. Flonase nasal spray. 8. Aspirin 81 mg daily. 9. Lyrica 100 mg b.i.d. 10. Torsemide 20 mg daily. [address] [address] CONSULTATION Name: CHASITYZARI VONDAADONAY Room #: 200-I [facility] IN M.R.#: [id number] Admission: 03/26/19 Attend Phys: Jah Guzman MD Discharge: Date of : 74 Report #: [id number] 11. Lantus insulin 24 units daily. 12. Humalog insulin 4 units with meals. 13. Atripla one daily. 14. Lasix 40 mg daily. 15. Levothyroxine 50 mcg daily. 16. Eliquis 5 mg b.i.d. 17. KCl 20 mEq daily. DRUG ALLERGIES: No known drug allergies. FAMILY HISTORY: Hypertension, hyperlipidemia and type 2 diabetes mellitus. SOCIAL HISTORY: The patient is , current smoker. Denies active use of alcohol or illicit drugs. PHYSICAL EXAMINATION: GENERAL: Middle-aged male patient who is not in apparent pain or distress. VITAL SIGNS: Blood pressure is 136/94 mmHg, heart rate is 105 beats per minute, respirations 18 per minute, temperature 36.7 degrees. CONSTITUTIONAL: The patient appears lethargic, somewhat tachypneic, sitting at the side of his bed, not in apparent pain. HEENT: Anicteric sclerae. Intact extraocular motions. NECK: Supple, with JVD, no carotid bruits, no thyromegaly. CHEST: Noted for limited air entry bilaterally with scattered rales, rhonchi and bibasilar crackles. HEART: Regular rate and rhythm with a systolic ejection murmur over the base of the heart. ABDOMEN: Distended, non-tense, no guarding. Generalized discomfort on deep palpation. No organomegaly. Active bowel sounds. EXTREMITIES: Lower extremity exam is noted for plus +1 ankle edema bilaterally with deep stasis dermatitis over both lower extremities and a 2-cm ulcer on the anterior aspect of his right lower extremity. Pedal pulses are not appreciable. Sensation to light touch is significantly diminished over both feet. NEUROLOGIC: Awake, alert and oriented to time, place and person. The remainder of his examination is nonfocal other than for the stated sensory deficits. PSYCHIATRIC: Appropriate, interactive. Normal mood and affect. LABORATORY RESULTS: Blood glucose on arrival was more than 500 and after medication, this dropped to 140 mg/dL. Otherwise, sodium 138, potassium 3.3, chloride 100, CO2 29, anion gap 9, BUN 19, creatinine 1.5, total bilirubin 0.5, AST 52, calcium 9.2, phosphorus 3.4, magnesium 1.8, uric acid 3.9, alkaline phosphatase 322, ALT 44, total protein 7.1, albumin 2.3, GFR 61. LDH 477. CPK 218. Troponin negative. Total cholesterol, this is old, BNP 4301 on 01/02/2019, free T4 was 1.4. White blood count is 4.6, hemoglobin 14.6, hematocrit 45.5, platelets 210. TSH on 03/27 was 4.591. Hemoglobin A1c on 01/02 was 14.9%. [facility] [address] [place] [address] CONSULTATION Name: ZARI GASPAR Room #: 200-I [facility] IN [facility].#: [id number] Admission: 03/26/19 Attend Phys: Jah Guzman MD Discharge: Date of : 74 Report #: [id number] ASSESSMENT AND PLAN: 1. Type 2 diabetes mellitus. The patient remains under inadequate control as per the measured glucose parameters. When seen in the hospital about 2 months ago, the patient did very well at that time on a combination of Lantus and low-dose Humalog meal coverage. However, the patient has unfortunately been noncompliant with this regimen and acknowledges the complete cessation of Humalog insulin and access to Jardiance and intermittent stoppage of Lantus. The patient was counseled extensively about the necessity of achieving and maintaining adequate glycemic control to prevent further diabetic complications of which he had suffered a great deal so far. It is unfortunate to see that while the patient has a good understanding of the impact of severe hyperglycemia on his overall health state that he continues to exercise significant noncompliance. In the immediate setting, I will go on and start the patient on his usual home regimen in the form of Lantus insulin 24 units at bedtime, adding Humalog 6 units t.i.d. a.c. with the support of a low-intensity Humalog supplemental scale. Blood glucose monitoring will commence a.c. and at bedtime to assist in making further changes as necessary. 2. Hypothyroidism. The patient is maintained on a stable dose of levothyroxine 50 mcg daily. His current TSH is slightly elevated. I will investigate this further with a current free T4 and adjust his treatment as necessary. 3. Hyperlipidemia. The patient remains on active therapy with atorvastatin. I stressed the importance of adequate lipid control and advised him to maintain the current regimen. 4. Hypertension. The patient's level of blood pressure control is currently adequate on the current regimen. He is to continue with the same. The patient is currently on a combination of furosemide, carvedilol and losartan. 5. Diabetic neuropathy. The patient seems to have adequate control on the current Lyrica regimen, he is to continue with the same. 6. Chronic kidney disease. The patient seems to have renal function indices that are consistent with stage 3 chronic kidney disease, I stressed the importance of adequate blood sugar, blood cholesterol and blood pressure towards maintaining an adequate kidney function. I reviewed the patient's clinical care notes, laboratory data, office care notes and office laboratory records both past and present for over 35 minutes. I certainly appreciate this consultation by Dr. Napoles. <ELECTRONICALLY SIGNED> By: Ashanti Yanez MD 03/28/19 1020 1626 0024 Ashanti Yanez MD /nt
[2019-03-28 12:28] VITALS: BP 92/76
[2019-03-28 16:10] VITALS: BP 80/59
[2019-03-28 16:35] VITALS: BP 90/62
[2019-03-28 22:54] VITALS: BP 110/78
--- NOTE | 2019-03-28 23:31 | HC ---
[facility] [place] [address] CONSULTATION Name: ZARI GASPAR Room #: 200-I ADM IN M.R.#: [id number] Admission: 03/26/19 Attend Phys: Jah Guzman MD Discharge: Date of : 74 Report #: [id number] THIS REPORT FOR: //name// CC: [facility] physician/PCP Behzad Stark DATE OF SERVICE: 03/27/2019 INFECTIOUS DISEASE CONSULTATION REASON FOR CONSULTATION: I was asked to evaluate concerning HIV infection in the setting of congestive heart failure. HISTORY OF PRESENT ILLNESS: This is a 48-year-old with history of coronary artery disease, anterior OR in 06/2018, stented. He has ischemic cardiomyopathy with severe LV dysfunction with an EF of 15% to 20%. In addition has peripheral vascular disease, apical thrombus, previous DVT, is on chronic anticoagulation. He has underlying diabetes, tobacco use and is HIV positive. He presents now for treatment of congestive heart failure with progressive orthopnea, PND, peripheral edema. He failed to improve with outpatient diuretics. Unclear as to how well he is compliant with his sodium restriction. He has remained on Atripla longstanding. He has been known HIV positive for 9 to 10 years. No reported opportunistic infections. He reports being compliant with his medications. His previous Infectious Disease physician was Dr. Napoles. He has not followed up since he closed his practice. He was supposed to see me earlier this month, but canceled his appointment. ALLERGIES: None known. MEDICATIONS: As noted on his MAR including Atripla. Others have included insulin, Lasix, Synthroid, Eliquis, potassium, Jardiance, clopidogrel, Lipitor, Cozaar, digoxin, Coreg, Flonase nasal spray, Corlanor, aspirin, Lyrica, torsemide. PAST MEDICAL HISTORY: Cardiomyopathy, coronary artery disease, OR, atrial thrombus, peripheral vascular disease, hypertension, hyperlipidemia, tobacco use, DVT, diabetes, right lower extremity arterial clot requiring surgical debridement and fem-pop bypass, fasciotomy, pneumococcal pneumonia with bacteremia in 2011. FAMILY HISTORY: Noncontributory. SOCIAL HISTORY: Smoker of cigarettes. No significant alcohol intake. Lives with his and children. 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 [address] [address] CONSULTATION Name: ZARI GASPAR Room #: 200-I [facility] IN ..#: [id number] Admission: 03/26/19 Attend Phys: Jah Guzman MD Discharge: Date of : 74 Report #: [id number] REVIEW OF SYSTEMS: Denies any chest pain. He has had no cough or sputum production. Denies any nausea, vomiting or diarrhea. He has had significant peripheral edema with a wound to his right lower extremity over the last several months. Denies any peripheral neuropathy. Denies any adenopathy. No headaches or change in mental status. He has had no pharyngitis symptoms. His last visit to his clinical social work therapist was several years ago. He has no ongoing dental issues. His last dental evaluation was several years ago. No weight loss. Has significant amount of weight gain due to his edema. No nausea, vomiting or diarrhea. His appetite has been good. No dysuria or frequency. No hematuria. No blood in his stool or in his urine. No back pain reported. No other neurologic or psychiatric issues. Remains anticoagulated with no bleeding issues noted. Denies any allergy issues. He is on no antimicrobial prophylaxis. He denies any history of tuberculosis exposure. Denies any other STDs. He is uncircumcised. No previous colonoscopy. PHYSICAL EXAMINATION: VITAL SIGNS: He was afebrile and hemodynamically stable. GENERAL: He was alert and cooperative, in no acute distress. Mood was normal. Affect normal. Mental status was normal. He had 2+ peripheral edema noted in his lower extremities. Fair amount of abdominal wall edema as well. Wound to the right pretibial skin was dressed and dry. There was no purulent drainage. No palpable adenopathy. HEENT: Eyes without scleral icterus. Pupils were equal, round and reactive to light. Mouth without mucositis. He had dental caries evident. NECK: Supple with no thyromegaly or mass. LUNGS: Few crackles in the bases bilaterally with no consolidation. HEART: Regular without appreciable murmur, gallop or rub. ABDOMEN: Mildly distended, was nontender with no hepatosplenomegaly or mass. GENITAL, RECTAL: Not performed. EXTREMITIES: Without cyanosis. There was no clubbing. NEUROLOGIC: Nonfocal with no cranial nerve abnormalities. Strength in his upper and lower extremities was within normal limits. Deep tendon reflexes in his knees were within normal limits. Sensation to touch in his upper and lower extremities was symmetric and within normal limits. LABORATORY DATA: Reviewed. MICROBIOLOGY REPORTS: Reviewed. IMAGING: Chest x-ray reviewed. IMPRESSION: A 48-year-old presents with: 1. Decompensated congestive heart failure and diabetes in the setting of human [facility] [address] [place] [address] CONSULTATION Name: ZARI GASPAR Room #: 200-I ADM IN .R.#: [id number] Admission: 03/26/19 Attend Phys: Jah Guzman MD Discharge: Date of : 74 Report #: [id number] immunodeficiency virus infection. Unclear at this point if he has acquired immunodeficiency syndrome. 2. Ischemic cardiomyopathy. 3. Diabetes, poorly controlled. 4. Hypertension, stable. 5. Hyperlipidemia. 6. Tobacco use. 7. Acute kidney injury. 8. Anticoagulated for deep venous thrombosis and apical thrombus. RECOMMENDATIONS: 1. We will continue current antiretroviral therapy as long as creatinine stays at this level. If it should increase further, we will need to adjust his dosing. 2. He will follow up as an outpatient for further workup. We will obtain previous laboratory studies to compare. <ELECTRONICALLY SIGNED> By: Shaggy Johnson MD 03/28/19 [id number] Shaggy Johnson MD /nt
[2019-03-29 04:06] VITALS: BP 95/72
[2019-03-29 06:09] LABS: HEMATOCRIT 45.4 % (42.0-52.0); HEMOGLOBIN 14.7 gm/dL (14.0-18.0); MCH 30.9 pg (26.0-34.0); MCHC 32.4 g/dL (28.0-37.0); MCV 95.4 fL (80.0-100.0); RBC 4.76 mil/uL (4.50-6.00); RDW 15.5 % (10.5-14.5); WBC 5.6 thou/uL (4.0-11.0)
[2019-03-29 06:20] LABS: CALCIUM 8.4 mg/dL (8.5-10.1); CREATININE 1.7 mg/dL (0.7-1.3); POTASSIUM 3.9 mmol/L (3.5-5.1)
[2019-03-29 07:15] VITALS: BP 110/88
[2019-03-29 17:00] VITALS: BP 116/88
[2019-03-29 20:15] VITALS: BP 105/78
[2019-03-30] VITALS (12 sets, daily range): BP systolic 103–138; BP diastolic 73–90
[2019-03-30 05:28] LABS: HEMATOCRIT 44.5 % (42.0-52.0); HEMOGLOBIN 14.1 gm/dL (14.0-18.0); MCH 30.4 pg (26.0-34.0); MCHC 31.7 g/dL (28.0-37.0); MCV 95.8 fL (80.0-100.0); RBC 4.65 mil/uL (4.50-6.00); RDW 15.1 % (10.5-14.5); WBC 4.4 thou/uL (4.0-11.0)
[2019-03-30 06:05] LABS: CREATININE 1.5 mg/dL (0.7-1.3); POTASSIUM 3.9 mmol/L (3.5-5.1)
--- NOTE | 2019-03-30 08:13 | HC ---
[facility] [place] [address] CONSULTATION Name: ZARI GASPAR Room #: 200-I ADM IN .R.#: [id number] Admission: 03/26/19 Attend Phys: Jah Guzman MD Discharge: Date of : 74 Report #: [id number] THIS REPORT FOR: //name// CC: [facility] physician/PCP Jah Guzman DATE OF SERVICE: 03/27/2019 HISTORY OF PRESENT ILLNESS: This is a 48-year-old male patient who was admitted through the Emergency Department with shortness of breath and fluid retention. He notes increasing swelling of his legs and back. He has had poor appetite and has been unable to take his regular medications. He is also noted to have a chronic ulceration to the right lateral lower leg, which has been nonhealing for quite some time. He cannot recall the exact onset or duration. PAST MEDICAL HISTORY: Positive for history of chronic kidney disease stage 3, previously known coronary artery disease, diabetes mellitus, HIV infection, peripheral arterial disease, cardiomyopathy, hypothyroidism. FAMILY HISTORY: Positive for heart disease and diabetes. SOCIAL HISTORY: The patient is a heavy drinker, especially on weekends. He smokes cigars 1 per day and has used THC in the not too distant past. MEDICATIONS: Include Jardiance, clopidogrel, Lipitor, Cozaar, Lanoxin, Coreg, Flonase, Corlanor, aspirin, Lyrica. ALLERGIES: No known drug allergies. REVIEW OF SYSTEMS: CONSTITUTIONAL: The patient denies fever, chills or weight loss. NEUROLOGICAL: The patient denies focal weakness, numbness or tingling. EYES: The patient denies visual changes, redness, or drainage. ENT: The patient denies earache, nasal drainage or sore throat. CARDIOVASCULAR: The patient denies chest pain, palpitations, diaphoresis. PULMONARY: The patient does complain of shortness of breath, especially dyspnea on exertion and orthopnea. GASTROINTESTINAL: The patient complains of a feeling of fullness. Denies nausea or vomiting. GENITOURINARY: The patient denies frequency of urination. ORTHOPEDIC: The patient complains of swelling of his extremities as well as a chronic ulceration to the right lower leg. Other systems in a 14-point review of systems are negative. PHYSICAL EXAMINATION: VITAL SIGNS: At this time include temperature 36.3, pulse 97, respiratory rate [facility] [address] [place] [address] [facility]: [facility]-I [facility] IN .R.#: [id number] Admission: 03/26/19 Attend Phys: Jah Guzman MD Discharge: Date of : 74 Report #: [id number], blood pressure of 113/94. GENERAL: This is a chronically ill-appearing male patient who appears to be in mild discomfort. HEENT: Head normocephalic. Nose and throat clear. NECK: Supple. LUNGS: Diminished. HEART: Regular rhythm with a systolic ejection murmur. ABDOMEN: Edematous, soft, nontender. EXTREMITIES: Lower extremities demonstrate difficult or nonpalpable distal pulses. He has 3+ edema. There is a circular ulcer on the right lateral lower leg. It is covered with moderate fibrin. It is not overtly infected at this time. NEUROLOGIC: The patient is alert and oriented and appropriate. Moving all 4 extremities spontaneously. LABORATORY DATA: Includes white blood cell count 4.6 with hemoglobin of 14.6, hematocrit of 45.5, platelet count 210,000. Sodium 138, potassium 3.9, chloride 102, CO2 of 29, BUN 26, creatinine 1.3, glucose 52. CLINICAL IMPRESSION: 1. Venous type ulceration, chronic to right lateral lower leg. 2. Suspected peripheral arterial disease. 3. Diabetes mellitus, uncontrolled. 4. Congestive heart failure. 5. Diabetic neuropathy. 6. Fluid overload. 7. Acute on chronic heart failure with ischemic cardiomyopathy and ejection fraction of 20%. 8. Human immunodeficiency virus infection. RECOMMENDATIONS: At this point in time, I will recommend quarter strength Dakin's moist gauze to be applied daily to the right lateral lower leg. We will need to check an arterial Doppler and consider angiography or for possible percutaneous intervention should he have significant inflow disease. He will need aggressive nutritional support, continuation of current medications. I appreciate being asked to see him in consultation. <ELECTRONICALLY SIGNED> By: Davi Ordonez MD 03/30/19 [id number] Davi Ordonez MD /nt
[2019-03-31 04:45] VITALS: BP 110/82
[2019-03-31 06:30] LABS: HEMATOCRIT 42.4 % (42.0-52.0); HEMOGLOBIN 13.4 gm/dL (14.0-18.0); MCH 30.1 pg (26.0-34.0); MCHC 31.6 g/dL (28.0-37.0); MCV 95.2 fL (80.0-100.0); RBC 4.46 mil/uL (4.50-6.00); RDW 15.2 % (10.5-14.5); WBC 4.8 thou/uL (4.0-11.0)
[2019-03-31 06:51] LABS: CALCIUM 8.1 mg/dL (8.5-10.1); CREATININE 1.6 mg/dL (0.7-1.3); POTASSIUM 4.1 mmol/L (3.5-5.1)
[2019-03-31 07:05] VITALS: BP 122/95
[2019-03-31] MEDS ORDERED: ELIQUIS5 MG PO (12:18)
[2019-03-31] MEDS ORDERED: LIPITOR40 MG PO ×2 (12:18→12:19)
[2019-03-31] MEDS ORDERED: CORLANOR5 MG PO (12:18)
[2019-03-31] MEDS ORDERED: DIGOXIN250 MCG PO (12:18)
[2019-03-31] MEDS ORDERED: COZAAR 25 MG TA25 M1 PO (12:19)
[2019-03-31] MEDS ORDERED: CARVEDILOL12.5 MG PO (12:19)
[2019-03-31] MEDS ORDERED: POTASSIUM20 PO (12:20)
[2019-03-31] MEDS ORDERED: DEMADEX20 MG PO (12:20)
[2019-03-31] MEDS ORDERED: LANTUS SUBQ (12:21)
[2019-03-31] MEDS ORDERED: HUMALOG100 UNIT/1 SUBQ (12:21)
[2019-03-31 13:48] VITALS: BP 122/95
== END 2019-03-31 15:10 | disposition home or self-care (01) | DRG 299 ==
LOC: ER 17:41 → EROBS 20:19 → 2N 20:19 → ENTRNSPT 03-31 14:13 → EDTRNSPTSTS 03-31 14:15 → 2N 03-31 15:10
PROVIDERS: Emergency Medicine; Internal Medicine Cardiovascular Disease; Nuclear Medicine Nuclear Cardiology; Nurse Practitioner Acute Care; ADMIT Hospitalist
PROC: 05HY33Z Insertion of Infusion Device into Upper Vein, Percutaneous Approach (ICD-10-PCS; principal; 2019-03-26)
PROC: B4181ZZ Fluoroscopy of Bilateral Renal Arteries using Low Osmolar Contrast (ICD-10-PCS; 2019-03-30)
PROC: B4101ZZ Fluoroscopy of Abdominal Aorta using Low Osmolar Contrast (ICD-10-PCS; 2019-03-30)
DX: E11.51 Type 2 diabetes mellitus with diabetic peripheral angiopathy without gangrene (principal); I50.23 Acute on chronic systolic (congestive) heart failure; I13.0 Hypertensive heart and chronic kidney disease with heart failure and stage 1 through stage 4 chronic kidney disease, or unspecified chronic kidney disease; N17.9 Acute kidney failure, unspecified; L97.919 Non-pressure chronic ulcer of unspecified part of right lower leg with unspecified severity; N18.3 Chronic kidney disease, stage 3 (moderate); E78.5 Hyperlipidemia, unspecified; E11.22 Type 2 diabetes mellitus with diabetic chronic kidney disease; E11.319 Type 2 diabetes mellitus with unspecified diabetic retinopathy without macular edema; E11.65 Type 2 diabetes mellitus with hyperglycemia; I25.10 Atherosclerotic heart disease of native coronary artery without angina pectoris; I25.5 Ischemic cardiomyopathy; E03.9 Hypothyroidism, unspecified; E87.70 Fluid overload, unspecified; E83.42 Hypomagnesemia; E87.6 Hypokalemia; Z86.718 Personal history of other venous thrombosis and embolism; Z79.4 Long term (current) use of insulin; I25.2 Old myocardial infarction; Z82.49 Family history of ischemic heart disease and other diseases of the circulatory system; Z83.3 Family history of diabetes mellitus; Z79.01 Long term (current) use of anticoagulants; Z91.14 Patient's other noncompliance with medication regimen; Z79.82 Long term (current) use of aspirin; Z79.899 Other long term (current) drug therapy; Z71.6 Tobacco abuse counseling
CPT/HCPCS: 10081; 27000

== ENCOUNTER 2019-04-11 18:10 | Emergency (ER) | payer BC, OTHER ==
[~2019-04-11] VITALS: Ht 180.3 cm; Wt 120.2 kg
[~2019-04-11 18:10] MED LIST changes: +DEMADEX20 MG PO; +HUMALOG100 UNIT/1 SUBQ; +LIPITOR40 MG PO
== END 2019-04-11 18:22 ==
LOC: ER 18:10
DX: I46.9 Cardiac arrest, cause unspecified (principal); B20 Human immunodeficiency virus [HIV] disease; E11.22 Type 2 diabetes mellitus with diabetic chronic kidney disease; E78.5 Hyperlipidemia, unspecified; E03.9 Hypothyroidism, unspecified; N18.3 Chronic kidney disease, stage 3 (moderate); F17.210 Nicotine dependence, cigarettes, uncomplicated; Z86.73 Personal history of transient ischemic attack (TIA), and cerebral infarction without residual deficits; Z86.718 Personal history of other venous thrombosis and embolism; Z79.4 Long term (current) use of insulin